=== PATIENT | female | born 1950 | race Caucasian/White ===

== ENCOUNTER 2020-06-19 14:34 | Outpatient (CLI) | payer OTHER, SELFPAY ==
[2020-06-19 15:20] LABS: Basophils Absolute Auto 0.1 K/mm3 (0.0-0.1); Basophils Percent Auto 1.1 % (0.2-1.2); Eosinophils Absolute Auto 0.4 K/mm3 (0-0.3); Eosinophils Percent Auto 5.4 % (0-4.4); Hematocrit 45.3 % (37.0-47.0); Hemoglobin 15.1 g/dL (12.0-15.0); Immature Granulocyte Absolute 0.02 K/mm3 (0.00-0.031); Immature Granulocyte Percent A 0.3 % (0-0.5); Lymphocytes Absolute Auto 1.83 K/mm3 (0.9-3.2); Mean Corpuscular HGB Conc 33.3 g/dl (32-36); Mean Corpuscular Hemoglobin 27.9 pg (26-34); Mean Corpuscular Volume 83.7 fl (80-100); Mean Platelet Volume 10.5 fl (7.4-10.4); Monocytes Absolute Auto 0.8 K/mm3 (0.1-0.6); Monocytes Percent Auto 10.3 % (2.6-8.5); Neutrophils Absolute Auto 4.8 K/mm3 (1.3-6.7); Neutrophils Percent Auto 59.9 % (45.5-73.1); Platelet Count Result 267 k/mm3 (150-375); Red Blood Count 5.41 M/mm3 (4.2-5.4); Red Cell Distribution Width 14.7 % (11.5-14.5)
[2020-06-19 15:33] LABS: Alanine Aminotransferase 30 U/L (4-35); Albumin Level 4.7 g/dL (3.5-5.1); Alkaline Phosphatase 123 U/L (38-126); Anion Gap 8 mmol/L (8-16); Aspartate Amino Transferase 32 U/L (14-36); Bilirubin,Total 0.5 mg/dL (0.2-1.3); Blood Urea Nitrogen 11 mg/dL (7-17); Calcium 9.5 mg/dL (8.4-10.2); Carbon Dioxide 27 mmol/L (22-30); Chloride 104 mmol/L (98-107); Cholesterol 159 mg/dL (0-200); Estimated Glomerular Filt Rate > 60; Glucose 102 mg/dL (65-105); HDL Direct 75 mg/dL; Potassium 4.1 mmol/L (3.4-5.0); Sodium 139 mmol/L (137-145); Triglycerides 52 mg/dL (<150)
[2020-06-19 15:41] LABS: Hemoglobin A1C 6.1 % (<5.7)
[2020-06-19 15:44] LABS: LDL Cholesterol Direct 69 mg/dL
[2020-06-19 15:57] LABS: Creatinine Urine 129.9 mg/dL
[2020-06-19 16:12] LABS: Vitamin D 25 Hydroxy 55.1 ng/mL
[2020-06-19 16:14] LABS: MALB Creatinine Ratio < 4.6 mg/g (0-30); Microalbumin Urine Random < 6.0 mg/L (0-16.7)
== END 2020-06-19 14:35 | disposition home or self-care (01) ==
PROVIDERS: PCP Internal Medicine; Visit Provider Internal Medicine
DX: R73.01 Impaired fasting glucose (principal); E78.5 Hyperlipidemia, unspecified; I10 Essential (primary) hypertension; E55.9 Vitamin D deficiency, unspecified
CPT/HCPCS: 36415; 80053; 80061; 82043; 82306; 83036; 84443; 85025

== ENCOUNTER 2020-08-21 08:18 | Outpatient (CLI) | payer OTHER, SELFPAY ==
--- NOTE | 2020-09-14 13:48 | WPDHOMESLEEP ---
Sleep Study - Home Unattended Date of Study: 08/21/20 Ordering Provider: Carlos little MD Interpreting Physician: Wendie Hernandez MD Home Sleep Study Type: Apnea Link Air Height: 1.52 m Weight: 81.647 kg Body Mass Index: 35.2 [place]: 4 Reason for Sleep Study non refreshing sleep, tired all day Sleep History hSea Hays is a 70 yo female with complaints of feeling tired all day and having morning fog. She has been on CPAP in the past. She frequently awakens from sleep feeling short of breath. She occasionally awakens at night with heartburn belching or coughing. She frequently snores. She is not sure of it is loud enough that others complain about it because she lives by herself. She does not gasp for breath at night and does not sweat excessively at night. She does not have palpitations or notices her heart pounding irregularly at night. She frequently falls asleep during the day, occasionally involuntarily but never while driving. She does not fall asleep during physical effort. She does not have loss of muscle tone was strong emotion. She occasionally has excessive daytime sleepiness which interferes with her daytime activities. She does not feel paralyzed on waking or falling asleep, rarely has vivid dreamlike scenes upon awakening or falling asleep. She has never for a to go to sleep. She does not have nightmares and does not remember her dreams. She rarely has racing thoughts, feelings of sadness or depression. She never has anxiety. She rarely has muscular tension. She does not notice pressure body jerking. She occasionally kicks at night, occasionally has crawling and aching feelings in her legs and occasionally has leg pain at night. She rarely has morning jaw pain. She occasionally grinds her teeth at night, occasionally is bothered by pain during the day, awakened by pain at night, feels stiff in the morning, has sore achy muscles and pain in the neck and spine joints. She has fatigue and memory problems. Normal bedtime is 12 midnight taking 5 minutes fall asleep typically waking once at most at night. During this time she goes to the bathroom. She wakes the morning at 7:00 a.m.. Weekend schedule is the same. She does not take naps. She is drowsy in the morning for 3 hours or longer. She has gained 10 lb in the last year. Habits: Quit tobacco 40 years ago. One caffeinated beverage a day. No alcohol or recreational drugs. [facility] Past Medical History Medical History (Updated 09/14/20 @ 13:54 by Wendie Hernandez MD) Essential hypertension Gastroesophageal reflux disease Hearing loss Hx of abnormal cervical Pap smear IFG (impaired fasting glucose) SALOME (obstructive sleep apnea) Stress incontinence in female Tinnitus of both ears Vitamin D deficiency, unspecified Family History Family History (Updated 01/05/18 @ 14:09 by DOCTOR UNKNOWN) Mother Hypertension Family history of obesity Family history of osteoporosis Family history of mental disorder Depression Family history of anemia Family history of hepatitis Family history of arthritis Sibling Hypertension Depression Patient's brother is in good health Family history of congestive heart failure Father Family history of diabetes mellitus in first degree relative Family history of heart disease in male family member before age 55 Diabetes mellitus Family history of cardiovascular disease Family history of congestive heart failure Social History Social History Smoking status: Never smoker Smoking end date: 11/09/69 Alcohol intake: never Medications Home Medications Medication Instructions Recorded Confirmed Type amlodipine 10 mg tablet 10 mg PO DAILY #90 tablet 06/19/20 06/19/20 Rx rosuvastatin 5 mg tablet 5 mg PO DAILY #90 tablet 06/19/20 06/19/20 Rx lisinopril 40 mg tablet 40 mg PO DAILY #90 tablet 07/05/20 Rx fluticasone propionate 50 See Rx Instructions .ROUTE 09/03/20 Rx mcg/actua
[2020-09-14 14:06] VITALS: BMI 35.2
== END 2020-08-21 08:19 | disposition home or self-care (01) ==
LOC: ANHCSM 08:19
PROVIDERS: PCP Internal Medicine; Visit Provider Internal Medicine
DX: G47.33 Obstructive sleep apnea (adult) (pediatric) (principal); I10 Essential (primary) hypertension; E78.5 Hyperlipidemia, unspecified; R73.01 Impaired fasting glucose; K21.9 Gastro-esophageal reflux disease without esophagitis; E55.9 Vitamin D deficiency, unspecified; H93.13 Tinnitus, bilateral
CPT/HCPCS: 95806

== ENCOUNTER 2020-11-24 01:20 | Outpatient (CLI) | payer OTHER, SELFPAY ==
[2020-11-24 18:46] LABS: SARS-CoV-2 RNA PCR Negative
== END 2020-11-24 01:21 | disposition home or self-care (01) ==
LOC: ANHCOVIDDT 01:21
PROVIDERS: PCP Internal Medicine; Visit Provider Internal Medicine Critical Care Medicine
DX: Z01.812 Encounter for preprocedural laboratory examination (principal); Z20.822 Contact with and (suspected) exposure to COVID-19
CPT/HCPCS: C9803; U0003; U0005

== ENCOUNTER 2020-11-27 07:25 | Outpatient (CLI) | payer OTHER, SELFPAY ==
--- NOTE | 2020-12-29 18:52 | WPDSLEEPSTUD ---
Sleep Study Date of Study: 11/27/20 Ordering Provider: Carlos Spangler MD Interpreting Physician: Wendie Hernandez MD Sleep Study Type: CPAP Titration Height: 1.5 m Weight: 81.647 kg Body Mass Index: 36.3 [place]: 5 Reason for Sleep Study Aug 21, 2020 home sleep test with moderate SALOME, AHI 19, obstructive events 61% with a substantial amount 39% central apneas; presents for a CPAP titration. Sleep History Shea Hays is a 70 yo female with complaints of feeling tired all day and having morning fog. She has been on CPAP in the past. Her home sleep test on August 21, 2020 showed moderate obstructive sleep apnea with a significant number of central apneas; she presents at this time for CPAP titration. She frequently awakens from sleep feeling short of breath. She occasionally awakens at night with heartburn belching or coughing. She frequently snores. She is not sure of it is loud enough that others complain about it because she lives by herself. She does not gasp for breath at night and does not sweat excessively at night. She does not have palpitations or notices her heart pounding irregularly at night. She frequently falls asleep during the day, occasionally involuntarily but never while driving. She does not fall asleep during physical effort. She does not have loss of muscle tone was strong emotion. She occasionally has excessive daytime sleepiness which interferes with her daytime activities. She does not feel paralyzed on waking or falling asleep, rarely has vivid dreamlike scenes upon awakening or falling asleep. She has never for a to go to sleep. She does not have nightmares and does not remember her dreams. She rarely has racing thoughts, feelings of sadness or depression. She never has anxiety. She rarely has muscular tension. She does not notice pressure body jerking. She occasionally kicks at night, occasionally has crawling and aching feelings in her legs and occasionally has leg pain at night. She rarely has morning jaw pain. She occasionally grinds her teeth at night, occasionally is bothered by pain during the day, awakened by pain at night, feels stiff in the morning, has sore achy muscles and pain in the neck and spine joints. She has fatigue and memory problems. Normal bedtime is 12 midnight taking 5 minutes fall asleep, typically waking once at most at night. During this time, she goes to the bathroom. She wakes the morning at 7:00 a.m.. Weekend schedule is the same. She does not take naps. She is drowsy in the morning for 3 hours or longer. She has gained 10 lb in the last year. Habits: Quit tobacco 40 years ago. One caffeinated beverage a day. No alcohol or recreational drugs. [facility] Past Medical History Medical History Essential hypertension Gastroesophageal reflux disease Hearing loss Hx of abnormal cervical Pap smear IFG (impaired fasting glucose) SALOME (obstructive sleep apnea) Stress incontinence in female Tinnitus of both ears Vitamin D deficiency, unspecified Family History Family History Mother Hypertension Family history of obesity Family history of osteoporosis Family history of mental disorder Depression Family history of anemia Family history of hepatitis Family history of arthritis Sibling Hypertension Depression Patient's brother is in good health Family history of congestive heart failure Father Family history of diabetes mellitus in first degree relative Family history of heart disease in male family member before age 55 Diabetes mellitus Family history of cardiovascular disease Family history of congestive heart failure Social History Social History (Updated 12/29/20 @ 19:05 by Wendie Hernandez MD) Smoking status: Former smoker Smoking end date: 11/09/69 Alcohol intake: never Medications Home Medications
[2020-12-29 19:02] VITALS: BMI 36.3
== END 2020-11-27 07:26 | disposition home or self-care (01) ==
LOC: ANHCSM 07:25
PROVIDERS: PCP Internal Medicine; Visit Provider Internal Medicine
DX: G47.33 Obstructive sleep apnea (adult) (pediatric) (principal); E66.9 Obesity, unspecified; Z68.36 Body mass index [BMI] 36.0-36.9, adult
CPT/HCPCS: 95811

== ENCOUNTER 2021-01-17 13:12 | Outpatient (CLI) | payer OTHER, SELFPAY ==
--- NOTE | ~2021-01-17 | MMUS_ITS ---
EXAMINATION: MM diagnostic asya RT w barrie, US breast RT complete HISTORY: Probable benign right breast masses reported on 05/19/2019 diagnostic right digital mammogram and limited right breast ultrasound examination TECHNIQUE: ML, MLO and craniocaudal 3-D tomosynthesis images of the right breast were performed and s ynthetic 2-D images were generated. CAD analysis was submitted and interpreted. High resolution compl ete right breast ultrasound was performed. COMPARISON: 04/19/2019 bilateral digital screening mammogram 05/19/2019 diagnostic right digital mammogram and limited right breast ultrasound examination BREAST PARENCHYMAL COMPOSITION: There are scattered areas of fibroglandular density. FINDINGS: MAMMOGRAPHIC FINDINGS: There are multiple scattered small scattered nodular densities. There are occasional benign calcifica tions. No suspicious mass or architectural distortion, malignant calcification, skin thickening or retractio n is evident. ULTRASOUND: At 6:00 2 cm from the nipple there is an irregular anti-parallel hypoechoic mass with some internal v ascularity, measuring up to approximately 11 mm depth, 10 mm width, more bulky posteriorly with, with an anteriorly directed stem-like process. This is a suspicious finding. Ultrasound-guided biopsy is recommended. 7:00 4 cm from nipple: Parallel circumscribed hypoechoic 3.1 x 2.6 mm lesion without internal vascula rity or posterior shadowing 6:00 3 cm from nipple:, Comma-shaped circumscribed bilobed sonolucency with internal calcification, m easuring up to 9.4 mm maximal dimension; there is no internal vascularity or posterior shadowing. IMPRESSION: 1. Suspicious antiparallel irregular up to 11 mm mass at 6:00 2 cm from nipple 2. Ultrasound-guided biopsy of right breast 6:00 lesion is recommended BI-RADS category 4, suspicious findings. Dr. Mosher telephoned the report and ultrasound guided biopsy recommendation on 01/17/20[address] Spangler's Delivery Analyst Reviewed, dictated and finalized at location A. PRODUCT TRAINER IMPRESSION: 1. Suspicious antiparallel irregular up to 11 mm mass at 6:00 2 cm from nipple 2. Ultrasound-guided biopsy of right breast 6:00 lesion is recommended BI-RADS category [address] Mosher telephoned the report and ultrasound guided biopsy recommendation on at [address] Spangler's Delivery Analyst
== END 2021-01-17 13:13 | disposition home or self-care (01) ==
PROVIDERS: PCP Internal Medicine; Visit Provider Internal Medicine
DX: R92.8 Other abnormal and inconclusive findings on diagnostic imaging of breast (principal)
CPT/HCPCS: 76641; 77061; 77065; G0279

== ENCOUNTER 2021-02-05 09:47 | Outpatient (CLI) | payer OTHER, SELFPAY ==
--- NOTE | ~2021-02-05 | MMUS_ITS ---
EXAMINATION: US breast biopsy RT w image, MM post biopsy invasive RT DATE: 02/05/2021 11:15 (accession [id number]), 02/05/2021 11:27 (accession [id number]) INDICATION: Indeterminate mass at the 6:00 location of the right breast. Ultrasound-guided core biops y is requested to evaluate for malignancy. TECHNIQUE AND FINDINGS: The risks and potential benefits of the procedure were discussed with the patient including bleeding and infection. A time out was performed. The skin of the right breast was prepared and draped in usua l sterile fashion. 1% lidocaine was used for superficial anesthesia. 1% lidocaine with epinephrine wa s used for deep anesthesia. A vacuum-assisted biopsy gun needle was advanced through to the outer edge of the region of interest from a medial approach utilizing sonographic guidance. A total of three tissue core samples were obta ined through the lesion. A tissue marker clip was then placed at the biopsy site. Hemostasis was achi eved. A sterile bandage was applied. The patient tolerated procedure well and there was no evidence of immediate complication. The patient was given verbal instructions to return to the Emergency Department in the event of severe breast pa in or rapid breast enlargement. A two view right breast mammogram was obtained to document tissue mar ker clip placement. IMPRESSION: 1. Successful ultrasound-guided vacuum-assisted biopsy of right breast mass with tissue marker placem ent. Reviewed, dictated and finalized at location A. IMPRESSION: 1. Successful ultrasound-guided vacuum-assisted biopsy of right breast mass wit h tissue marker placement.
== END 2021-02-05 09:48 | disposition home or self-care (01) ==
PROVIDERS: PCP Internal Medicine; Visit Provider Internal Medicine
DX: N63.13 Unspecified lump in the right breast, lower outer quadrant (principal)
CPT/HCPCS: 19083; 88305; 88342

== ENCOUNTER 2022-01-29 14:32 | Outpatient (CLI) | payer OTHER, SELFPAY ==
--- NOTE | ~2022-01-29 | DEXA_ITS ---
Bone Density Report Name: ZAHIRA SILVESTRE Age: 71 Sex: Female Ethnicity: White Date of : 1950 Indication: postmenopausal; height loss; prior fracture; Referring Provider: ALESSIA NGUYEN Study: Bone densitometry was performed. Exam Date: January 29, 2022 Accession number: [id number] Bone Density: Region BMD T-score Z-score Classification AP Spine (L1, L4) 1.089 0.5 2.7 Normal Femoral Neck (Left) 0.639 -1.9 0.0 Osteopenia Total Hip (Left) 0.883 -0.5 1.1 Normal Total Hip Bilateral Avg 0.891 -0.5 1.2 Normal Femoral Neck (Right) 0.766 -0.7 1.1 Normal Total Hip (Right) 0.898 -0.4 1.2 Normal World Health Organization criteria for BMD impression classify patients as: Normal (T-score at or above -1.0), Osteopenia (T-score between -1.0 and -2.5), or Osteoporosis (T-score at or below -2.5). 10-year Fracture Risk(1): Major Osteoporotic Fracture 16% Hip Fracture 2.8% Reported Risk Factors: [place] (), Neck BMD=0.639, BMI=36.4, previous fracture (1) FRAX(R) Version 3.08. Fracture probability calculated for an untreated patient. Fracture probability may be lower if the patient has received treatment. Previous Exams: Region Exam Age BMD T-score BMD Change BMD Change Date g/cm2 vs Baseline vs Previous AP Spine(L1, L4) 01/29/2022 71 1.089 0.5 0.102(10.3%)* 0.053(5.1%)* 04/19/2019 68 1.036 0.0 0.049(5.0%)* 0.049(5.0%)* 01/17/2016 65 0.987 -0.5 Total Hip(Left) 01/29/2022 71 0.883 -0.5 -0.095(-9.7%)* -0.059(-6.3%)* 04/19/2019 68 0.943 0.0 -0.036(-3.7%)* -0.036(-3.7%)* 01/17/2016 65 0.979 0.3 Total Hip(Right) 01/29/2022 71 0.898 -0.4 -0.086(-8.7%)* -0.006(-0.7%) 04/19/2019 68 0.904 -0.3 -0.079(-8.1%)* -0.079(-8.1%)* 01/17/2016 65 0.984 0.3 *Denotes significance at 95% confidence level, LSC for AP Spine = 0.022 g/cm2, LSC for Total Hip = 0.027 g/cm2 Clinical Information Provided by Patient: Has had a low trauma fracture Has used the following medications: Vitamin D, Calcium Patient maximum height was 61.5 Menopause Age: 55 No regular weight bearing exercise Drinks caffeinated beverages Onset of menses at age 12 Number of children 1 Impression: The patient has low bone mass, based on the Left Femoral Neck T-score. The patient has an estimated ten-year risk of hip fracture of 2.8% and an estimated ten-year risk of major fracture of 16%, based on the WHO FRAX algorithm. The patient has
== END 2022-01-29 14:33 | disposition home or self-care (01) ==
LOC: ANHIMG 14:38
PROVIDERS: PCP Internal Medicine; Visit Provider Internal Medicine
DX: M85.852 Other specified disorders of bone density and structure, left thigh (principal)
CPT/HCPCS: 77080

== ENCOUNTER 2022-05-30 06:29 | Outpatient (CLI) | payer OTHER, SELFPAY ==
--- NOTE | ~2022-05-30 | CT_ITS ---
EXAMINATION: CT soft tissue neck w con DATE: 05/30/2022 07:06 INDICATION: Left neck mass. 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 TECHNIQUE: Computed tomography (CT) of the neck was performed with 75 mL Omnipaque 300 intravenous co ntrast. Automated exposure control and iterative reconstruction technique were employed. The dose-daily gth product was 412.47 mGy-cm. COMPARISON: None FINDINGS: There are nodules in the thyroid measuring up to 8 mm, likely not clinically significant. T here are no pathologically enlarged lymph nodes. There is 0% stenosis of the proximal internal caroti d arteries relative to normal distal artery lumen diameters. There is severe cervical spondylosis. IMPRESSION: 1. No cervical lymphadenopathy. Reviewed, dictated and finalized at location A.
[2022-05-30 07:02] LABS: Estimated Glomerular Filt Rate > 60
[2022-05-30 08:08] LABS: Basophils Absolute Auto 0.1 K/mm3 (0.0-0.1); Eosinophils Absolute Auto 0.4 K/mm3 (0-0.3); Eosinophils Percent Auto 5.2 % (0-4.4); Hematocrit 41.9 % (37.0-47.0); Hemoglobin 14.2 g/dL (12.0-15.0); Immature Granulocyte Absolute 0.01 K/mm3 (0.00-0.031); Immature Granulocyte Percent A 0.1 % (0-0.5); Lymphocytes Absolute Auto 1.74 K/mm3 (0.9-3.2); Lymphocytes Percent Auto 22.8 % (18.3-44.2); Mean Corpuscular HGB Conc 33.9 g/dl (32-36); Mean Corpuscular Hemoglobin 28.5 pg (26-34); Mean Platelet Volume 9.9 fl (7.4-10.4); Monocytes Absolute Auto 0.8 K/mm3 (0.1-0.6); Monocytes Percent Auto 10.2 % (2.6-8.5); Neutrophils Absolute Auto 4.6 K/mm3 (1.3-6.7); Neutrophils Percent Auto 60.7 % (45.5-73.1); Platelet Count Result 256 k/mm3 (150-375); Red Blood Count 4.99 M/mm3 (4.2-5.4); Red Cell Distribution Width 14.3 % (11.5-14.5); White Blood Count 7.6 K/mm3 (4.5-10.0)
[2022-05-30 08:19] LABS: Alanine Aminotransferase 22 U/L (6-35); Albumin Level 4.6 g/dL (3.5-5.1); Alkaline Phosphatase 130 U/L (38-126); Anion Gap 6 mmol/L (8-16); Aspartate Amino Transferase 26 U/L (14-36); Bilirubin,Total 0.5 mg/dL (0.2-1.3); Blood Urea Nitrogen 16 mg/dL (7-17); Carbon Dioxide 26 mmol/L (22-30); Chloride 107 mmol/L (98-107); Estimated Glomerular Filt Rate > 60; Glucose 131 mg/dL (65-110); Potassium 4.3 mmol/L (3.4-5.0); Sodium 139 mmol/L (137-145)
[2022-06-03 20:04] LABS: CA 15-3 7 U/mL (<32)
== END 2022-05-30 06:30 | disposition home or self-care (01) ==
PROVIDERS: PCP Internal Medicine; Visit Provider Internal Medicine Hematology & Oncology
DX: C50.912 Malignant neoplasm of unspecified site of left female breast (principal); C50.412 Malignant neoplasm of upper-outer quadrant of left female breast; Z17.0 Estrogen receptor positive status [ER+]; M47.812 Spondylosis without myelopathy or radiculopathy, cervical region
CPT/HCPCS: 70491; 80053; 85025; 86300; Q9967

== ENCOUNTER 2022-07-10 13:24 | Outpatient (CLI) | payer OTHER, SELFPAY ==
--- NOTE | 2022-07-10 | ECHO_ITS ---
Patient Info Name: Shea Hays Age: 72 years : 1950 Gender: Female Ht: 59 in Wt: 180 lbs BSA: 1.89 m2 HR: 71 bpm BP: 124 / 90 mmHg Heart Rhythm: Sinus Rhythm Exam Date: 07/10/2022 2:24 PM Exam Location: [facility] Patient Status: Outpatient Admit Date: 07/10/2022 Staff Ordering Physician: Ranjan Salinas MD Legal Internship: Amanda Avalos RDCS Attending Provider: Ranjan Salinas MD Referring Physician: Brad BOSS; Exam Type: CA echo doppler color flow Study Info Indications C50.412 - Malignant neoplasm of upper-outer quadrant of left female breast Complete two-dimensional, color flow and Doppler transthoracic echocardiogram is performed. Summary 1. Complete two-dimensional, color flow and Doppler transthoracic echocardiogram is performed. 2. Normal left ventricular size with mild concentric hypertrophy. Good systolic function of all segments with no segmental wall motion abnormalities. Ejection fraction is 61%. Global longitudinal strain is mildly diminished at -15% consistent with a degree of systolic dysfunction. Grade 1 diastolic dysfunction is present. 3. Left atrial chamber dimension is mildly enlarged. 4. No significant valve disease. 5. Normal sinus rhythm. 6. Right ventricular systolic pressure cannot be estimated on this study. Left Ventricle Left ventricular chamber dimension is normal. Left ventricular systolic function is normal, estimated at Empty. There is mildly increased left ventricular wall thickness. Left ventricular septal wall motion is normal. The left ventricular diastolic function is grade I diastolic dysfunction. Global longitudinal strain is mildly elevated at -15 %. Right Ventricle Right ventricular chamber dimension is normal. Right ventricular systolic function is normal. Left Atria Left atrial chamber dimension is mildly enlarged. Right Atria Right atrial chamber dimension is normal. Aortic Valve The aortic valve is trileaflet. There is no aortic valve sclerosis. There is no aortic valve stenosis. There is trace aortic valve regurgitation. Pulmonic Valve The pulmonic valve is normal. There is no pulmonic valve stenosis. There is no pulmonic regurgitation. Mitral Valve The mitral valve has normal leaflets. There is no mitral valve stenosis. There is no mitral valve regurgitation. Tricuspid Valve The tricuspid valve leaflets are normal. There is no significant tricuspid valve stenosis. There is trace tricuspid valve regurgitation. No pulmonary hypertension, estimated pulmonary arterial systolic pressure is Empty. Pericardium/Pleural The pericardium appears normal. There is no pericardial effusion. Inferior Vena Cava Not well visualized inferior vena cava with >50% collapse upon inspiration consistent with Empty right atrial pressure, Empty. Aorta The aortic root size at the sinus of Valsalva is normal. The prox ascending aorta size is normal. Left Ventricular Outflow Tract Name Value Normal LVOT 2D LVOT Diameter 2.0 cm LVOT Doppler LVOT Peak Gradient 3 mmHg LVOT Mean Gradient
== END 2022-07-10 13:25 | disposition home or self-care (01) ==
LOC: ANHCARD 13:30
PROVIDERS: PCP Internal Medicine; Visit Provider Internal Medicine Hematology & Oncology
DX: C50.412 Malignant neoplasm of upper-outer quadrant of left female breast (principal); Z17.0 Estrogen receptor positive status [ER+]; I74.4 Embolism and thrombosis of arteries of extremities, unspecified
CPT/HCPCS: 93306

== ENCOUNTER 2022-08-04 13:28 | Outpatient (CLI) | payer OTHER, SELFPAY ==
[2022-08-04 14:01] LABS: Basophils Absolute Auto 0.1 K/mm3 (0.0-0.1); Basophils Percent Auto 1.1 % (0.2-1.2); Eosinophils Absolute Auto 0.5 K/mm3 (0-0.3); Eosinophils Percent Auto 6.2 % (0-4.4); Hematocrit 43.4 % (37.0-47.0); Hemoglobin 14.3 g/dL (12.0-15.0); Immature Granulocyte Absolute 0.02 K/mm3 (0.00-0.031); Immature Granulocyte Percent A 0.3 % (0-0.5); Lymphocytes Absolute Auto 1.88 K/mm3 (0.9-3.2); Lymphocytes Percent Auto 25.2 % (18.3-44.2); Mean Corpuscular HGB Conc 32.9 g/dl (32-36); Mean Corpuscular Hemoglobin 27.9 pg (26-34); Mean Corpuscular Volume 84.8 fl (80-100); Mean Platelet Volume 10.1 fl (7.4-10.4); Monocytes Absolute Auto 0.8 K/mm3 (0.1-0.6); Monocytes Percent Auto 11.3 % (2.6-8.5); Neutrophils Absolute Auto 4.2 K/mm3 (1.3-6.7); Neutrophils Percent Auto 55.9 % (45.5-73.1); Platelet Count Result 254 k/mm3 (150-375); Red Blood Count 5.12 M/mm3 (4.2-5.4); Red Cell Distribution Width 14.3 % (11.5-14.5); White Blood Count 7.5 K/mm3 (4.5-10.0)
[2022-08-04 14:11] LABS: Anion Gap 10 mmol/L (8-16); Blood Urea Nitrogen 12 mg/dL (7-17); Calcium 9.7 mg/dL (8.4-10.2); Carbon Dioxide 23 mmol/L (22-30); Chloride 105 mmol/L (98-107); Estimated Glomerular Filt Rate > 60; Glucose 108 mg/dL (65-110); Sodium 138 mmol/L (137-145)
[2022-08-04 14:14] LABS: Prothrombin Time 12.8 Seconds (11.1-14.7)
== END 2022-08-04 13:29 | disposition home or self-care (01) ==
LOC: ANHSURGERY 13:40
PROVIDERS: Anesthesiology; PCP Internal Medicine; Visit Provider Surgery
DX: C50.912 Malignant neoplasm of unspecified site of left female breast (principal); E11.9 Type 2 diabetes mellitus without complications; Z01.818 Encounter for other preprocedural examination
CPT/HCPCS: 36415; 80048; 85025; 85610; 85730

== ENCOUNTER 2022-08-07 00:35 | Day surgery (SDC) | payer OTHER, SELFPAY ==
[2022-06-17 14:36] VITALS: BMI 36.5
--- NOTE | 2022-06-17 14:43 | PC.NURSE ---
Report to the Outpatient Waiting Room, entrance under the green pavilion located off [facility], at time _1000_ on date _06/18/22_. OR Time: __1200. - You and your visitor will be asked a series of questions to screen for COVID 19 for your protection. - Only one visitor is allowed at this time. - The patient visitor is requested to leave or wait in car when not with patient. - A mask is required within the hospital. Patients may have clear liquids (water, carbonated beverages, clear teas, apple juice) until 3 hours prior to surgery with a maximum of 20 ounces. - No food from midnight until time of surgery - Infants may have breast milk until 4 hours before surgery, formula 6 hours prior to surgery. - Children will be allowed to drink immediately following surgery. If applicable, please bring a bottle or sippy cup to assist with drinking. Juice, water, soda, and popsicles are readily available. For infants on formula, please bring formula the day of surgery. Pacifiers are allowed. Take the following medications with a SIP of water the morning of surgery: NONE Medications to discontinue per physician NONE Date to take last dose Please no make-up, nail frisian, hairspray, perfume, deodorant, or body powder the day of surgery. No jewelry (including any body piercings) or valuables the day of surgery, leave them at home. Please take a shower or bath the night before, or the morning of, surgery with an antibacterial soap. Wear comfortable, loose fitting clothing. Children are encouraged to wear pajamas. - Jewelry must be removed prior to entering the operating room. Rings and piercings that are not removed may be cut off. - The hospital will not accept responsibility for valuables. - Please leave all valuables, including medications, at home the day of surgery. If you are going home after surgery, a licensed corporate driver must drive you home. - NO public transportation without another adult. - We recommend that an adult stay with you for 24 hours following discharge. - We also recommend that you do not drive, make important decision, drink alcoholic beverages, or take any drugs that were not prescribed by your health care provider for at least 24 hours after your discharge time. For Pediatric surgeries, we recommend two adults accompany the child home (only one inside the building at this time). Follow any additional instructions given to you from your surgeon. If you or anyone in your household have experienced Covid symptoms in the past week, please notify your surgeon or the nurse liaison at the phone number below for possible testing. Telephone instructions given to __PATIENT and asked if any additional questions and then verbalized understanding. Patient advised to call surgeon office or pre surgery nurse liaison [phone] if any additional questions.
[2022-08-04 11:10] VITALS: BMI 36.5
--- NOTE | 2022-08-04 11:20 | PC.NURSE ---
Report to the Outpatient Waiting Room, entrance under the green pavilion located off [facility], at time 10:00 on date 08/07/22. OR Time: 12:00. Time changes happen often and if your time is changed the preop area will call you the afternoon before. - You and your visitor will be asked to self-screen and do not enter if you have any COVID symptoms. - Only one visitor and NO children visitors are allowed at this time. - The patient visitor is requested to leave or wait in car when not with patient due to restrictions. - A mask is required within the hospital. Patients may have clear liquids (water, carbonated beverages, clear teas, apple juice) until 3 hours prior to surgery (9:00) with a maximum of 20 ounces. - No food from midnight until time of surgery Take the following medications with a SIP of water the morning of surgery: NONE Medications to discontinue per physician: N/A Date to take last dose: N/A Please no make-up, nail turkish, hairspray, perfume, deodorant, or body powder the day of surgery. No jewelry (including any body piercings) or valuables the day of surgery, leave them at home. Please take a shower or bath the night before, or the morning of, surgery with an antibacterial soap. Wear comfortable, loose fitting clothing. - Jewelry must be removed prior to entering the operating room. Rings and piercings that are not removed may be cut off. - The hospital will not accept responsibility for valuables. - Please leave all valuables, including medications, at home the day of surgery. If you are going home after surgery, a licensed local intermodal truck driver must drive you home. - NO public transportation without another adult. - We recommend that an adult stay with you for 24 hours following discharge. - We also recommend that you do not drive, make important decision, drink alcoholic beverages, or take any drugs that were not prescribed by your health care provider for at least 24 hours after your discharge time. Follow any additional instructions given to you from your surgeon. If you or anyone in your household have experienced Covid symptoms in the past week, please notify your surgeon or the nurse liaison at the phone number below for possible testing. Telephone instructions given to PT - ZAHIRA SILVESTRE and asked if any additional questions and then verbalized understanding. Patient advised to call surgeon office or pre surgery nurse liaison [phone] if any additional questions.
--- NOTE | 2022-08-06 13:21 | WPDANESEPPF ---
Anes - Initial Pre Proc Eval Procedure: Operation Date: 08/07/22 12:00 Proposed Procedures p Insertion Nichelle Cath - Addison Ortiz MD Date/Time: 08/06/22 13:21 Surgeon: Addison Ortiz MD Pre Op Diagnosis: Malignant Neoplasm of Breast Patient Data Age: 72 Gender: F Height: 1.5 m Weight: 82 kg Allergies Allergy/AdvReac Type Severity Reaction Status Date / Time Sulfa (Sulfonamide Allergy Mild Skin Verified 08/07/22 10:18 Antibiotics) irritation onion AdvReac Intermediate Diarrhea Verified 08/07/22 10:18 Home Medications Medication Instructions Recorded Confirmed Type amlodipine 10 mg tablet 10 mg PO DAILY #90 tabs 06/13/22 08/04/22 Rx metformin 500 mg tablet 500 mg PO DAILY #90 tabs 06/13/22 08/04/22 Rx rosuvastatin 5 mg tablet 5 mg PO DAILY #90 tabs 06/13/22 08/04/22 Rx fluticasone propionate 50 2 spray intranasal DAILY 06/17/22 08/04/22 History mcg/actuation nasal spray,suspension lisinopril 40 mg tablet 40 mg PO DAILY #90 tabs 06/17/22 08/04/22 Rx Patient hx anesthesia problems: none Family hx anesthesia problems: none Results Review: All pre-operative results and documents have been reviewed as part of the pre-operative evaluation. [facility] Past Medical History Medical History (Updated 08/06/22 @ 13:21 by Alec Balderas MD) Abnormal breast biopsy Diabetes Dyslipidemia Essential hypertension Gastroesophageal reflux disease Hearing loss Hx of abnormal cervical Pap smear IFG (impaired fasting glucose) Malignant neoplasm of unspecified site of left female breast Obesity (BMI 30-39.9) SALOME (obstructive sleep apnea) Osteopenia Sleep apnea Stress incontinence in female Tinnitus of both ears Vitamin D deficiency, unspecified Family History Family History Mother Hypertension Family history of obesity Family history of osteoporosis Family history of mental disorder Depression Family history of anemia Family history of hepatitis Family history of arthritis Sibling Hypertension Depression Patient's brother is in good health Family history of congestive heart failure Father Family history of diabetes mellitus in first degree relative Family history of heart disease in male family member before age 55 Diabetes mellitus Family history of cardiovascular disease Family history of congestive heart failure Social History Social History Smoking packs per day: 0.5 Smoking cigarettes per day: 10.0 Years smoked: 10 Smoking pack-years: 5.00 Smoking status: Former smoker Tobacco type: cigarettes Second hand tobacco smoke exposure: No Smoking end date: 11/09/69 Additional smoking assessment comments: SOCIAL SMOKER TEEN, EARLY 20'S Alcohol intake: never Substance use: never Substance use type: does not use Living arrangements: alone Spiritual care concerns: No Anes - Eval Final PreProcedure Day of Procedure 08/06/22 13:21 Patient weight: obese Heart: regular rate and rhythm Lungs: clear to auscultation and normal air movement Airway: Mallampati scale class II Neurological: alert and oriented Last oral intake: >/= 8 hours ASA classification: III Emergent: no Anesthetic plan: proceed Anesthesia type and monitoring: general GIVS and LMA Results Review: All pre-operative results and documents have been reviewed as part of the pre-operative evaluation. Informed Consent: The patient's anesthetic plan and its attendant risks and benefits were discussed with the patient/family/POA. Questions were solicited and answers provided to the satisfaction of the patient/family/POA.
[2022-08-07] VITALS (9 sets, daily range): BP systolic 109–146; BP diastolic 67–86; PULSE 59–76; RESP 12–18; TEMP 36.3–36.7; O2SAT 93–99
--- NOTE | ~2022-08-07 | XR_ITS ---
EXAMINATION: XR fl guide central line place INDICATION: Port-A-Cath insertion TECHNIQUE: Two intraoperative fluoroscopic images are submitted for review. Total fluoroscopic time w as 4 minutes and 21 seconds COMPARISON: None available FINDINGS: One fluoroscopic image demonstrates a right subclavian guidewire. The second demonstrates a right subclavian Port-A-Cath which appears to be looped in the subclavian vein. Please refer to proc edure note for full details. IMPRESSION: 1. Please refer to procedure note for full details. Reviewed, dictated and finalized at location A.
--- NOTE | ~2022-08-07 | XR_ITS ---
EXAMINATION: XR chest port-a-cath/central INDICATION: Port-A-Cath insertion TECHNIQUE: Portable AP chest at 1302 hours COMPARISON: 01/17/2016 FINDINGS: A right subclavian Port-A-Cath ends with its tip in the distal superior vena cava. There is mild atelectasis of the lung bases. No pleural effusion or pneumothorax. The cardiomediastinal silho uette is normal for technique. IMPRESSION: 1. Right subclavian Port-A-Cath ending with its tip in the distal superior vena cava. 2. Atelectasis of the lung bases. Reviewed, dictated and finalized at location A.
[2022-08-07] MEDS: LACTATED RINGERS 1,000 ML 30 ML IV CONT ×2 (10:20→12:52)
[2022-08-07] MEDS: KETOROLAC 15 MG/ML VIAL (*BKC) IV PUSH (10:36)
[2022-08-07 10:47] LABS: Glucose Point of Care 124 mg/dl (65-105)
--- NOTE | 2022-08-07 11:39 | WPDHPUPDATE1 ---
History and Physical Update Update Date/Time: 08/07/22 11:39 History and Physical has been reviewed, including an updated exam of the patient. There are NO changes in the patient's condition. Risks, benefits, and alternatives have been discussed and questions answered. Patient agrees to proceed with procedure.
--- NOTE | 2022-08-07 11:39 | PM.SD2 ---
Same Day Admit/Disch: HPI History of Present Illness Chief complaint: Malignant Neoplasm of Breast Narrative: Shea Hays is a 72 year old female with left breast cancer. She will be having chemotherapy and is taken to surgery today for placement of a portacath for that purpose. [facility] Past Medical History Medical History (Updated 08/07/22 @ 13:07 by Addison Ortiz MD) Abnormal breast biopsy Diabetes Dyslipidemia Essential hypertension Gastroesophageal reflux disease Hearing loss Hx of abnormal cervical Pap smear IFG (impaired fasting glucose) Malignant neoplasm of unspecified site of left female breast Obesity (BMI 30-39.9) SALOME (obstructive sleep apnea) Osteopenia Sleep apnea Stress incontinence in female Tinnitus of both ears Vitamin D deficiency, unspecified Family History Family History Mother Hypertension Family history of obesity Family history of osteoporosis Family history of mental disorder Depression Family history of anemia Family history of hepatitis Family history of arthritis Sibling Hypertension Depression Patient's brother is in good health Family history of congestive heart failure Father Family history of diabetes mellitus in first degree relative Family history of heart disease in male family member before age 55 Diabetes mellitus Family history of cardiovascular disease Family history of congestive heart failure Social History Social History Smoking packs per day: 0.5 Smoking cigarettes per day: 10.0 Years smoked: 10 Smoking pack-years: 5.00 Smoking status: Former smoker Tobacco type: cigarettes Second hand tobacco smoke exposure: No Smoking end date: 11/09/69 Additional smoking assessment comments: SOCIAL SMOKER TEEN, EARLY 20'S Alcohol intake: never Substance use: never Substance use type: does not use Living arrangements: alone Spiritual care concerns: No Same Day Admit/Disch: Med Pre-admit Medications Home Medications Medication Instructions Recorded Confirmed Type amlodipine 10 mg tablet 10 mg PO DAILY #90 tabs 06/13/22 08/04/22 Rx metformin 500 mg tablet 500 mg PO DAILY #90 tabs 06/13/22 08/04/22 Rx rosuvastatin 5 mg tablet 5 mg PO DAILY #90 tabs 06/13/22 08/04/22 Rx fluticasone propionate 50 2 spray intranasal DAILY 06/17/22 08/04/22 History mcg/actuation nasal spray,suspension lisinopril 40 mg tablet 40 mg PO DAILY #90 tabs 06/17/22 08/04/22 Rx hydrocodone 5 mg-acetaminophen 325 1 - 2 tablet PO Q6H PRN pain #7 08/07/22 Rx mg tablet tabs ibuprofen 600 mg tablet 600 mg PO Q6H PRN pain #14 tabs 08/07/22 Rx Exam Const: General: comfortable, no acute distress, alert and awake HENMT: Head: normocephalic and atraumatic Mouth: Yes Normal oral and palatal mucosa present Eyes: Conjunctivae: conjunctivae normal Pupils: Equal, round and reactive pupils present EOM: EOMs intact bilaterally Neck: Neck: normal visual inspection, no lymphadenopathy and nontender Chest: Chest palpation & inspection: normal inspection of the chest, normal palpation of entire chest wall, no tenderness, No Pacemaker present and No rash Resp: Effort & Inspection: normal respiratory effort Auscultation: clear to auscultation bilaterally Cardio: Rate: regular rate Rhythm: regular rhythm Heart sounds: no gallops, no murmurs and no rubs GI: Inspection: non-distended GI Palp: Yes Soft to palpation, No Tenderness to palpation present (GI), No Hepatomegaly present and No Splenomegaly present Skin: Lesions: no lesions Rashes: no rashes Neuro: General: no focal motor deficits and CN's II-XI intact bilaterally Cranial nerves: Yes Equal, round and reactive pupils present, Yes Bilaterally intact EOM present, Yes facial symmetry and Yes Midline tongue present Speech: normal speech Motor exam (neuro): 5/5 motor stre
[2022-08-07] MEDS: ceFAZolin 2 GM/D5W 50 ML 2 GM/50 ML BAG IVPB (11:44)
[2022-08-07] MEDS: BUPIVACAINE/EPINEPHRINE 0.25% 50 ML VIAL 20 ML INFILTRATE (12:05)
[2022-08-07] MEDS: HEPARIN SODIUM 1,000 UNITS/ML VIAL 1000 UNITS IV PUSH (12:16)
[2022-08-07 13:05] LABS: Glucose Point of Care 124 mg/dl (65-105)
--- NOTE | 2022-08-07 13:09 | P.OP_ITS ---
Procedure Note - Detailed Date of Procedure 08/07/22 Pre-op Diagnosis Malignant Neoplasm of Breast, inadequate venous access for chemotherapy Post-op Diagnosis Same Procedure Performed Placement left subclavian vortex Port-A-Cath under fluoroscopy Surgeon Addison Ortiz MD Steaming Cabinet Tender Addison moss MANAGER LOSS PREVENTION Anesthesia General (LMA) and Local (0.25% Marcaine with epinephrine) Indications Patient is a 72-year-old woman who had lumpectomy and sentinel node biopsy for a left breast lobular invasive cancer. She is to have chemotherapy and a Port-A-Cath has been requested for administration. She is taken to surgery now for this purpose. Findings Tip of the Port-A-Cath is in the distal SVC, right atrial junction. Postprocedure chest x-ray by my review showed no pneumothorax and the Port-A-Cath to be in good position. Description of Procedure Patient was taken to surgery and placed in supine position. IV sedation was administered. The right subclavian and right neck areas were prepped and draped. The proposed right subclavian incision was marked on the skin. Local anesthesia was infiltrated in the area the skin and the deeper subcutaneous tissues. Incision was made and dissection was carried down through the subcutaneous. A subcutaneous pocket was then created. I did excise some of the subcutaneous fat so that the pectoralis major fascia was exposed. Additional local was infiltrated into the pocket and under the right clavicle. The right subclavian vein was then cannulated. A guidewire was passed into the superior vena cava. The position was documented by C-arm fluoroscopy. I then laid the Port-A-Cath tubing over the guidewire path and with fluoroscopy cut the Port-A-Cath the appropriate length. An introducer and sheath was then passed over the guidewire and into the superior vena cava by fluoroscopy. I then removed the guidewire and the introducer. The Port-A-Cath tubing was passed through the sheath and into the superior vena cava. The sheath was then removed. The Port-A-Cath was placed in the pocket. I sutured the Port-A-Cath to the pectoralis major fascia. Port-A-Cath was easily palpable on the chest wall below the incision area. I then checked the Port-A-Cath. It was cannulated with a Joya needle. It aspirated blood easily and flushed well with heparin. Port-A-Cath was flushed with heparin. I then closed the wound with running 2-0 Vicryl suture in layers. The skin was closed with running 4-0 Monocryl skin suture. The wound was dressed with Exofin surgical adhesive. The patient was awakened and taken to recovery in good condition. Sponge and needle counts were correct x2. Estimated Blood Loss -5.0 Drains No Packing No Pathology None sent Complications No immediate complications Condition Stable Disposition PACU [facility] Billing Surgery - Charge Forward: Surgery Billing (Placement right subclavian Port-A-Cath under fluoroscopy)
== END 2022-08-07 14:44 | disposition home or self-care (01) ==
PROVIDERS: PCP Internal Medicine; Visit Provider Surgery
PROC: (CPT 36561; principal; 2022-08-07 13:00)
DX: C50.912 Malignant neoplasm of unspecified site of left female breast (principal); E11.9 Type 2 diabetes mellitus without complications; E78.5 Hyperlipidemia, unspecified; I10 Essential (primary) hypertension; K21.9 Gastro-esophageal reflux disease without esophagitis; E66.9 Obesity, unspecified; Z68.35 Body mass index [BMI] 35.0-35.9, adult; G47.33 Obstructive sleep apnea (adult) (pediatric); E55.9 Vitamin D deficiency, unspecified; Z87.891 Personal history of nicotine dependence
CPT/HCPCS: 36561; 36415; 77001; 80048; 82948; 85025; 85610; 85730; C1788; J0690; J1644; J1885; J2405; J2704; J3010; J7030; J7120

== ENCOUNTER → 2023-12-03 10:54 | Outpatient (CLI) | payer OTHER, SELFPAY ==
--- NOTE | ~2023-12-03 | DEXA_ITS ---
Bone Density Report Name: ZAHIRA SILVESTRE Age: 73 Sex: Female Ethnicity: White Date of : 1950 Indication: postmenopausal; screening for osteoporosis; height loss; cancer; Referring Provider: Ranjan Salinas Study: Bone densitometry was performed. Exam Date: December 03, 2023 Accession number: [id number] Bone Density: Region BMD T-score Z-score Classification AP Spine (L1-L4) 1.135 0.8 3.1 Normal Femoral Neck (Left) 0.634 -1.9 0.1 Osteopenia Total Hip (Left) 0.844 -0.8 0.9 Normal Femoral Neck (Right) 0.720 -1.2 0.8 Osteopenia Total Hip (Right) 0.855 -0.7 1.0 Normal Total Hip Mean 0.850 -0.8 1.0 Normal World Health Organization criteria for BMD impression classify patients as: Normal (T-score at or above -1.0), Osteopenia (T-score between -1.0 and -2.5), or Osteoporosis (T-score at or below -2.5). 10-year Fracture Risk(1): Major Osteoporotic Fracture 12% Hip Fracture 2.5% Reported Risk Factors: [place] (), Neck BMD=0.634, BMI=34.0 (1) FRAX(R) Version 3.08. Fracture probability calculated for an untreated patient. Fracture probability may be lower if the patient has received treatment. Clinical Information Provided by Patient: Has used the following medications: Vitamin D, Calcium Has the following medical conditions: Cancer Patient maximum height was 61.75 Menopause Age: 54 No regular weight bearing exercise Drinks caffeinated beverages Onset of menses at age 13 Number of children 1 Impression: The patient has low bone mass, based on the Left Femoral Neck T-score. The patient has an estimated ten-year risk of hip fracture of 2.5% and an estimated ten-year risk of major fracture of 12%, based on the WHO FRAX algorithm. Discussion: BONE DENSITY IS LOW AT ONE OR MORE SKELETAL SITES. This patient's lowest T-score is low at one or more skeletal sites. It meets the World Health Organization's (WHO) criteria for ?low bone mass? (T-score between -1.0 and -2.5). The patient's 10-year risk of fracture as calculated by FRAX is less than the threshold where pharmacological therapy is recommended by the National Osteoporosis Foundation (NOF). However, all treatment decisions require clinical judgment and consideration of individual patient factors, including patient preferences, comorbidities, previous drug use, risk factors not captured in the FRAX model (e.g., frailty, falls, vitamin D deficiency, increased bone turnover, interval significant decline in bone density) and possible under or overestimation of fracture risk by FRAX. The patient should follow a healthful lifestyle (good nutrition with adequate calcium and vitamin D, and appropriate weight-bearing exercise). Follow-Up: Consider repeating this study in 2 to 3 years to reassess this patient's status, or sooner if there is some ne
== END ==
PROVIDERS: PCP Internal Medicine Hematology & Oncology; Visit Provider Internal Medicine Hematology & Oncology
DX: M85.89 Other specified disorders of bone density and structure, multiple sites (principal)
CPT/HCPCS: 77080

== ENCOUNTER 2024-01-08 05:07 | Day surgery (SDC) | payer OTHER, SELFPAY ==
--- NOTE | 2024-01-01 11:30 | PC.NURSE ---
Report to the Outpatient Waiting Room, entrance under the green pavilion located off [facility], at time __0600 on date __01/08/24 . Planned Procedure Time: _0730 . Time changes happen often and if your time is changed the preop area will call you the afternoon before. - You and your visitor will be asked to self-screen and do not enter if you have any COVID symptoms. - A mask is optional within the hospital at this time. Patients may have clear liquids (water, carbonated beverages, clear teas, apple juice) until 3 hours prior to surgery( 4:30 AM) with a maximum of 20 ounces. - No food from midnight until time of surgery - Infants may have breast milk until 4 hours before surgery, infant formula 6 hours prior to surgery. - Children will be allowed to drink immediately following surgery. If applicable, please bring a bottle or sippy cup to assist with drinking. Juice, water, soda, and popsicles are readily available. For infants on formula, please bring formula the day of surgery. Pacifiers are allowed. Take the following medications with a SIP of water the morning of surgery: NONE DO NOT STOP ANY OF YOUR OTHER PRESCRIPTION MEDICATIONS PRIOR TO SURGERY ?EXCEPT THE FOLLOWING Medications to discontinue per physician ____ALL VITAMINS AND SUPPLEMENTS 3 DAYS LAST DOSE 01/04/24 Please no make-up, nail paraguayan, hairspray, perfume, deodorant, or body powder the day of surgery. No jewelry (including any body piercings) or valuables the day of surgery, leave them at home. Please take a shower or bath the night before, or the morning of, surgery with an antibacterial soap. Wear comfortable, loose fitting clothing. Children are encouraged to wear pajamas. - Jewelry must be removed prior to entering the operating room. Rings and piercings that are not removed may be cut off. - The hospital will not accept responsibility for valuables. - Please leave all valuables, including medications, at home the day of surgery. If you are going home after surgery, a licensed new autos delivery driver must drive you home. - NO public transportation without another adult if you receive anesthesia. - We recommend that an adult stay with you for 24 hours following discharge. - We also recommend that you do not drive, make important decision, drink alcoholic beverages, or take any drugs that were not prescribed by your health care provider for at least 24 hours after your discharge time. Follow any additional instructions given to you from your surgeon. If you or anyone in your household have experienced Covid symptoms in the past week, please notify your surgeon or the nurse liaison at the phone number below for possible testing. Telephone instructions given to ___PATIENT and asked if any additional questions and then verbalized understanding. Patient advised to call surgeon office or pre surgery nurse liaison [phone] if any additional questions.
[2024-01-01 11:38] VITALS: BMI 32.9
[2024-01-08 06:24] VITALS: BP 138/83; PULSE 77; RESP 20; TEMP 37.4; O2SAT 98
[2024-01-08] MEDS: LACTATED RINGERS 1,000 ML 30 ML IV CONT (06:55)
--- NOTE | 2024-01-08 07:03 | WPDANESEPPF ---
Anes - Initial Pre Proc Eval Procedure: Operation Date: 01/08/24 07:30 Proposed Procedures p Removal of Nichelle Cath - Carson Pate MD Date/Time: 01/08/24 07:03 Surgeon: Carson Ptae MD Pre Op Diagnosis: malignant neoplasm of outer quadrant left breast Patient Data Age: 73 Gender: F Height: 1.5 m Weight: 73.95 kg Allergies Allergy/AdvReac Type Severity Reaction Status Date / Time Sulfa (Sulfonamide Allergy Mild Fatigued Verified 01/01/24 11:13 Antibiotics) onion AdvReac Intermediate Diarrhea Verified 01/01/24 11:13 Home Medications Medication Instructions Recorded Confirmed Type lisinopril 40 mg tablet See Rx Instructions .Route 12/02/23 01/08/24 Rx .COMPLEX #90 tabs rosuvastatin 5 mg tablet See Rx Instructions .Route 12/02/23 01/08/24 Rx .COMPLEX #90 tabs metformin 500 mg tablet See Rx Instructions .Route 12/03/23 01/08/24 Rx .COMPLEX #90 tabs fluticasone propionate 50 2 spray intranasal DAILY #48 grams 12/31/23 01/08/24 Rx mcg/actuation nasal spray,suspension Excedrin Extra Strength 2 tablet PO DAILY 01/01/24 01/08/24 History amlodipine 5 mg tablet 5 mg PO QPM 01/01/24 01/08/24 History ascorbic acid (vitamin C) 500 mg 500 mg PO DAILY 01/01/24 01/08/24 History tablet,extended release (Vitamin C ER) calcium 600 mg capsule 600 mg PO DAILY 01/01/24 01/08/24 History cholecalciferol (vitamin D3) 50 50 mcg PO DAILY 01/01/24 01/08/24 History mcg (2,000 unit) capsule lysine 500 mg tablet 500 mg PO DAILY 01/01/24 01/08/24 History multivitamin 1 tablet PO DAILY 01/01/24 01/08/24 History tamoxifen 20 mg tablet 20 mg PO QPM 01/01/24 01/08/24 History vitamin B complex 1 cap PO DAILY 01/01/24 01/08/24 History Patient hx anesthesia problems: none Family hx anesthesia problems: none Results Review: All pre-operative results and documents have been reviewed as part of the pre-operative evaluation. [facility] Past Medical History Medical History Abnormal breast biopsy Diabetes Dyslipidemia Essential hypertension Gastroesophageal reflux disease Hearing loss Hx of abnormal cervical Pap smear IFG (impaired fasting glucose) Malignant neoplasm of unspecified site of left female breast Obesity (BMI 30-39.9) SALOME (obstructive sleep apnea) Osteopenia Peripheral neuropathy Sleep apnea Stress incontinence in female Tinnitus of both ears Vitamin D deficiency, unspecified Family History Family History Mother Hypertension Family history of obesity Family history of osteoporosis Family history of mental disorder Depression Family history of anemia Family history of hepatitis Family history of arthritis Sibling Hypertension Depression Patient's brother is in good health Family history of congestive heart failure Father Family history of diabetes mellitus in first degree relative Family history of heart disease in male family member before age 55 Diabetes mellitus Family history of cardiovascular disease Family history of congestive heart failure Heart disease Social History Social History Smoking packs per day: 0.5 Smoking cigarettes per day: 10.0 Years smoked: 10 Smoking pack-years: 5.00 Smoking status: Former smoker Tobacco type: cigarettes Second hand tobacco smoke exposure: No Smoking end date: 11/09/69 Additional smoking assessment comments: SOCIAL SMOKER TEEN, EARLY 20'S Alcohol intake: never Substance use: never Substance use type: does not use Lack of Transportation: No Lack of Food: Never True Current Housing: I Have Housing Concerned About Future Housing: No Difficulty Paying Gas/Electric Bills: No Difficulty Paying for Meds: No Currently Unemployed: No Education: High School Diploma/GED Living arrangements: alone Spiritual care con
[2024-01-08 07:12] LABS: Glucose Point of Care 122 mg/dl (65-105)
--- NOTE | 2024-01-08 07:34 | PM.IMHP ---
H&P: HPI History of Present Illness Date/Time: 01/08/24 07:34 Chief Complaint: Needs port removed, hx of breast ca Narrative: Pt with hx of left breast ca who underwent BCT. Has not needed chemo tx for over a year. Now presents for removal of the portacatheter. Review of Systems Review of Systems: The remainder of the review of systems to include constitutional, HEENT, cardiovascular, respiratory, GI, , integumentary, musculoskeletal, endocrine, immunologic, hematologic, psychiatric, and neurologic are all negative except for which is mentioned above in the HPI. [facility] Past Medical History Medical History Abnormal breast biopsy Diabetes Dyslipidemia Essential hypertension Gastroesophageal reflux disease Hearing loss Hx of abnormal cervical Pap smear IFG (impaired fasting glucose) Malignant neoplasm of unspecified site of left female breast Obesity (BMI 30-39.9) SALOME (obstructive sleep apnea) Osteopenia Peripheral neuropathy Sleep apnea Stress incontinence in female Tinnitus of both ears Vitamin D deficiency, unspecified Family History Family History Mother Hypertension Family history of obesity Family history of osteoporosis Family history of mental disorder Depression Family history of anemia Family history of hepatitis Family history of arthritis Sibling Hypertension Depression Patient's brother is in good health Family history of congestive heart failure Father Family history of diabetes mellitus in first degree relative Family history of heart disease in male family member before age 55 Diabetes mellitus Family history of cardiovascular disease Family history of congestive heart failure Heart disease Social History Social History Smoking packs per day: 0.5 Smoking cigarettes per day: 10.0 Years smoked: 10 Smoking pack-years: 5.00 Smoking status: Former smoker Tobacco type: cigarettes Second hand tobacco smoke exposure: No Smoking end date: 11/09/69 Additional smoking assessment comments: SOCIAL SMOKER TEEN, EARLY 20'S Alcohol intake: never Substance use: never Substance use type: does not use Lack of Transportation: No Lack of Food: Never True Current Housing: I Have Housing Concerned About Future Housing: No Difficulty Paying Gas/Electric Bills: No Difficulty Paying for Meds: No Currently Unemployed: No Education: High School Diploma/GED Living arrangements: alone Spiritual care concerns: No Meds Home Medications and Allergies Home Medications Medication Instructions Recorded Confirmed Type lisinopril 40 mg tablet See Rx Instructions .Route 12/02/23 01/08/24 Rx .COMPLEX #90 tabs rosuvastatin 5 mg tablet See Rx Instructions .Route 12/02/23 01/08/24 Rx .COMPLEX #90 tabs metformin 500 mg tablet See Rx Instructions .Route 12/03/23 01/08/24 Rx .COMPLEX #90 tabs fluticasone propionate 50 2 spray intranasal DAILY #48 grams 12/31/23 01/08/24 Rx mcg/actuation nasal spray,suspension Excedrin Extra Strength 2 tablet PO DAILY 01/01/24 01/08/24 History amlodipine 5 mg tablet 5 mg PO QPM 01/01/24 01/08/24 History ascorbic acid (vitamin C) 500 mg 500 mg PO DAILY 01/01/24 01/08/24 History tablet,extended release (Vitamin C ER) calcium 600 mg capsule 600 mg PO DAILY 01/01/24 01/08/24 History cholecalciferol (vitamin D3) 50 50 mcg PO DAILY 01/01/24 01/08/24 History mcg (2,000 unit) capsule lysine 500 mg tablet 500 mg PO DAILY 01/01/24 01/08/24 History multivitamin 1 tablet PO DAILY 01/01/24 01/08/24 History tamoxifen 20 mg tablet 20 mg PO QPM 01/01/24 01/08/24 History vitamin B complex 1 cap PO DAILY 01/01/24 01/08/24 History Allergies Allergy/AdvReac Type Severity Reaction Status Date / Time Sulfa (Sulfonamide Allergy Mild Fatigued
--- NOTE | 2024-01-08 07:40 | WPDHPUPDATE1 ---
History and Physical Update Update Date/Time: 01/08/24 07:40 History and Physical has been reviewed, including an updated exam of the patient. There are NO changes in the patient's condition. Risks, benefits, and alternatives have been discussed and questions answered. Patient agrees to proceed with procedure.
[2024-01-08] MEDS: ceFAZolin 2 GM/D5W 50 ML 2 GM/50 ML BAG IVPB (07:44)
[2024-01-08] MEDS: LIDO 1%/EPINEPHRINE 1:100,000 20 ML VIAL 10 ML INFILTRATE (08:01)
[2024-01-08] MEDS: BUPivacaine HCL 0.5% PF 30 ML VIAL 10 ML INFILTRATE (08:01)
[2024-01-08 08:31] VITALS: BP 85/72; PULSE 78; RESP 16; O2SAT 94
--- NOTE | 2024-01-08 08:52 | P.OP_ITS ---
Procedure Note - Detailed Date of Procedure 01/08/24 Pre-op Diagnosis malignant neoplasm of outer quadrant left breast Post-op Diagnosis Same Procedure Performed Removal of right subclavian vein anuradha catheter Surgeon Carson Pate MD Sales Representative [employer] MUÑOZ Anesthesia MAC Indications Patient is a 3-year-old female who had a history of left breast cancer and underwent breast conservation therapy. She has not had any chemotherapy for over a year now presents for removal of the right subclavian vein anuradha catheter. Findings None significant. Description of Procedure After informed consent was obtained patient brought to the operating room she was placed supine position and then IV sedation was administered by anesthesia. The upper anterior neck and chest on the right side was then prepped and draped usual sterile fashion. Time-out was then performed correctly identifying the patient as well as procedure to be performed. She was given perioperative IV antibiotics. 1% lidocaine mixed with 0.5% Marcaine with some epinephrine was then injected around the port and the old scar in the right upper anterior chest. The scalp was then used to excise out the old scar sharply and the tissue was discarded. I then dissected down through the subcutaneous tissue electrocautery to the hub of the port. The catheter was then freed from the surrounding subcutaneous tissue electrocautery and with gentle traction on the catheter was removed from the right subclavian vein. Pressure was then held the area the right subclavian vein to achieve hemostasis. The port was then excised out of the subcutaneous port pocket utilized electrocautery. The port in the attached catheter was then discarded. I then irrigated out the incision sterile saline solution hemostasis was good. I then fulgurated the fibrous port pocket utilized electrocautery. Incision was then closed utilizing interrupted 3-0 Vicryl sutures subcutaneous tissues. Skin edges were then approximated ut ilizing a running subcuticular 4 Monocryl suture. Incision was then cleaned the skin glue was applied. The patient tolerated the procedure well no complications. All sponges, needles, and instrument counts were correct at the end procedure. EBL was _5__cc. The patient was awakened and taken to recovery in stable and satisfactory condition. Implants None Estimated Blood Loss 5 Drains No Packing No Pathology None sent Complications No immediate complications Condition Stable Disposition PACU [facility] Billing Surgery - Charge Forward: Surgery Billing
[2024-01-08 08:53] LABS: Glucose Point of Care 118 mg/dl (65-105)
[2024-01-08 09:00] VITALS: BP 97/53; PULSE 73; RESP 16
[2024-01-08 09:20] VITALS: BP 114/59; PULSE 66; RESP 16
== END 2024-01-08 09:30 | disposition home or self-care (01) ==
PROVIDERS: PCP Family Medicine; Visit Provider Surgery
PROC: (CPT 36589; principal; 2024-01-08 07:30)
DX: Z45.2 Encounter for adjustment and management of vascular access device (principal); Z85.3 Personal history of malignant neoplasm of breast; Z92.21 Personal history of antineoplastic chemotherapy; E11.42 Type 2 diabetes mellitus with diabetic polyneuropathy; E78.5 Hyperlipidemia, unspecified; I10 Essential (primary) hypertension; K21.9 Gastro-esophageal reflux disease without esophagitis; G47.33 Obstructive sleep apnea (adult) (pediatric); E55.9 Vitamin D deficiency, unspecified; N39.3 Stress incontinence (female) (male); E66.9 Obesity, unspecified; Z68.32 Body mass index [BMI] 32.0-32.9, adult; Z79.84 Long term (current) use of oral hypoglycemic drugs; Z79.810 Long term (current) use of selective estrogen receptor modulators (SERMs); Z87.891 Personal history of nicotine dependence
CPT/HCPCS: 36590; 82948; J0690; J1100; J2250; J2371; J2405; J2704; J3010; J7120

== ENCOUNTER 2024-07-06 10:10 | Outpatient (CLI) | payer OTHER, SELFPAY ==
[2024-07-06 10:23] LABS: Basophils Absolute Auto 0.1 K/mm3 (0.0-0.1); Basophils Percent Auto 0.9 % (0.2-1.2); Eosinophils Absolute Auto 0.3 K/mm3 (0-0.3); Eosinophils Percent Auto 4.3 % (0-4.4); Hematocrit 42.8 % (37.0-47.0); Hemoglobin 14.3 g/dL (12.0-15.0); Immature Granulocyte Absolute 0.01 K/mm3 (0.00-0.031); Immature Granulocyte Percent A 0.2 % (0-0.5); Lymphocytes Absolute Auto 1.35 K/mm3 (0.9-3.2); Lymphocytes Percent Auto 20.8 % (18.3-44.2); Mean Corpuscular HGB Conc 33.4 g/dl (32-36); Mean Corpuscular Hemoglobin 29.2 pg (26-34); Mean Corpuscular Volume 87.5 fl (80-100); Mean Platelet Volume 9.6 fl (7.4-10.4); Monocytes Absolute Auto 0.7 K/mm3 (0.1-0.6); Monocytes Percent Auto 10.9 % (2.6-8.5); Neutrophils Absolute Auto 4.1 K/mm3 (1.3-6.7); Neutrophils Percent Auto 62.9 % (45.5-73.1); Platelet Count Result 203 k/mm3 (150-375); Red Blood Count 4.89 M/mm3 (4.2-5.4); Red Cell Distribution Width 13.4 % (11.5-14.5); White Blood Count 6.5 K/mm3 (4.5-10.0)
[2024-07-06 11:05] LABS: Alanine Aminotransferase 20 U/L (6-35); Albumin Level 4.4 g/dL (3.5-5.1); Alkaline Phosphatase 98 U/L (38-126); Anion Gap 14 mmol/L (4-12); Aspartate Amino Transferase 27 U/L (14-36); Bilirubin,Total 0.5 mg/dL (0.2-1.3); Blood Urea Nitrogen 14 mg/dL (7-17); Calcium 8.9 mg/dL (8.4-10.2); Carbon Dioxide 21 mmol/L (22-30); Chloride 104 mmol/L (98-107); Estimated Glomerular Filt Rate > 60; Glucose 99 mg/dL (65-110); Potassium 4.1 mmol/L (3.4-5.0); Sodium 139 mmol/L (137-145)
[2024-07-09 06:03] LABS: CA 15-3 6 U/mL (<32)
== END 2024-07-06 10:11 | disposition home or self-care (01) ==
LOC: ANHLAB 10:12
PROVIDERS: PCP Nurse Practitioner Family; Visit Provider Internal Medicine Hematology & Oncology
DX: C50.512 Malignant neoplasm of lower-outer quadrant of left female breast (principal); Z17.0 Estrogen receptor positive status [ER+]
CPT/HCPCS: 36415; 80053; 85025; 86300

== ENCOUNTER 2025-01-06 09:37 | Outpatient (CLI) | payer OTHER, SELFPAY ==
[2025-01-06 09:58] LABS: Basophils Absolute Auto 0.1 K/mm3 (0.0-0.1); Basophils Percent Auto 0.9 % (0.2-1.2); Eosinophils Absolute Auto 0.3 K/mm3 (0-0.3); Hematocrit 41.2 % (37.0-47.0); Hemoglobin 14.2 g/dL (12.0-15.0); Immature Granulocyte Absolute 0.01 K/mm3 (0.00-0.031); Immature Granulocyte Percent A 0.1 % (0-0.5); Lymphocytes Absolute Auto 1.25 K/mm3 (0.9-3.2); Lymphocytes Percent Auto 18.4 % (18.3-44.2); Mean Corpuscular HGB Conc 34.5 g/dl (32-36); Mean Corpuscular Hemoglobin 29.8 pg (26-34); Mean Corpuscular Volume 86.4 fl (80-100); Mean Platelet Volume 9.4 fl (7.4-10.4); Monocytes Absolute Auto 0.7 K/mm3 (0.1-0.6); Neutrophils Absolute Auto 4.5 K/mm3 (1.3-6.7); Neutrophils Percent Auto 66.6 % (45.5-73.1); Platelet Count Result 215 k/mm3 (150-375); Red Blood Count 4.77 M/mm3 (4.2-5.4); Red Cell Distribution Width 13.4 % (11.5-14.5); White Blood Count 6.8 K/mm3 (4.5-10.0)
[2025-01-06 11:38] LABS: Alanine Aminotransferase 19 U/L (6-35); Albumin Level 4.2 g/dL (3.5-5.1); Alkaline Phosphatase 83 U/L (38-126); Anion Gap 12 mmol/L (4-12); Aspartate Amino Transferase 23 U/L (14-36); Bilirubin,Total 0.5 mg/dL (0.2-1.3); Blood Urea Nitrogen 15 mg/dL (7-17); Carbon Dioxide 24 mmol/L (22-30); Chloride 106 mmol/L (98-107); Estimated Glomerular Filt Rate > 60; Glucose 114 mg/dL (65-110); Potassium 4.1 mmol/L (3.4-5.0); Sodium 142 mmol/L (137-145)
[2025-01-06 13:16] LABS: Hemoglobin A1C 5.9 % (<5.7)
[2025-01-07 07:48] LABS: CA 15-3 6 U/mL (<32)
== END 2025-01-06 09:38 | disposition home or self-care (01) ==
LOC: ANHLAB 09:38
PROVIDERS: PCP Nurse Practitioner Family; Visit Provider Internal Medicine Hematology & Oncology
DX: C50.512 Malignant neoplasm of lower-outer quadrant of left female breast (principal); Z17.0 Estrogen receptor positive status [ER+]; E11.9 Type 2 diabetes mellitus without complications
CPT/HCPCS: 36415; 80053; 83036; 85025; 86300

== ENCOUNTER 2025-06-08 15:08 | Outpatient (CLI) | payer OTHER, SELFPAY ==
--- NOTE | ~2025-06-08 | MM_ITS ---
EXAMINATION: MM screening asya BI w barrie HISTORY: Screening TECHNIQUE: Craniocaudal and mediolateral oblique 3-D tomosynthesis images were obtained and synthetic 2-D images were generated. CAD analysis was submitted and interpreted. COMPARISON: Comparison to multiple prior studies sequentially, with oldest reviewed study dated 01/16. BREAST PARENCHYMAL COMPOSITION: Not dense: There are scattered areas of fibroglandular density. FINDINGS: The right breast is stable without evidence for malignancy. There is new focal area of arch itectural distortion in the upper outer quadrant of the left breast. Per clinical history there has b een prior lumpectomy with radiation therapy in the left breast. IMPRESSION: 1. New architectural distortion upper outer quadrant of the left breast. 2. Recommend comparison to interval outside mammograms to assess stability post lumpectomy. BI-RADS Category 0: Incomplete: Needs additional imaging evaluation. Reviewed, dictated and finalized at location B.
--- OUTSIDE RECORDS SUMMARY | 2025-06-08 15:12 | XMS_ITS | Encounter Summary ---
Author Organization [facility] Healthcare Address [address] [place] [address] Care Team Providers Care Draw Hand Name Role Phone Alicia Mcleod MD Primary Care Provider + Reason for Visit * Diagnostic Imaging (Routine) - Closed Specialty Diagnoses / Procedures Referred By Contac t Referred To Contact Procedures Breast Imaging Screening Outside Reference Aft, Jennifer Nichols MD PhD [address] [place] [id number] Phone: tel: fax: Referral ID Status Reason Start Date Expiration Date Visits Re quested Visits Authorized [id number] Closed 01/24/2022 02/23/2023 1 1 Encounter Details Date Type Department Care Team (Late st Contact Info) Description 01/18/2018 Hospital Encounter [facility] [address] [place] [phone] Social History Tobacco Use Types Packs/Day Years [...] on file 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 There will be no report generated by a [facility] Radiologist. Narrative [facility] - 01/24/2022 1:31 PM CDT EXAMINATION: Images For Reference Purposes Only us Jennifer Palmer MD PhD IMG MAMMO PROCEDURES Final Result [facility] documented in this encounter Visit Diagnoses Not on filedocumented in this encounter Care Teams Draw Hand Relationship Specialty Start Date End Date Alicia Mcleod MD [address] [place] [address] PCP - General 03/12/16 01/16/22 documented as of this encounter
--- OUTSIDE RECORDS SUMMARY | 2025-06-08 15:12 | XMS_ITS | Encounter Summary ---
Author Organization [facility] Healthcare Address [address] [place] [address] Care Team Providers Care Bulk System Operator Name Role Phone Unavailable Primary Care Provider Unavailabl e Reason for Visit * Diagnostic Imaging (Routine) - Closed Specialty Diagnoses / Procedures Referred By Contac t Referred To Contact Procedures Breast Imaging US Outside Reference Aft, Jennifer Nichols MD PhD [address] [place] [address] Phone: tel: fax: Referral ID Status Reason Start Date Expiration Date Visits Re quested Visits Authorized [id number] Closed 01/24/2022 02/23/2023 1 1 Encounter Details Date Type Department Care Team (Late st Contact Info) Description 01/25/2016 12:05 AM CDT Hospital Encounter [facility] Radiology [facility] [address] [place], [place] [id number] Social History Tobacco Use Types Packs/Day Years [...] on file 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 There will be no report generated by a [facility] Radiologist. Narrative [facility] - 01/24/2022 1:34 PM CDT EXAMINATION: Images For Reference Purposes Only us Jennifer Palmer MD PhD IMG MAMMO PROCEDURES Final Result [facility] documented in this encounter Visit Diagnoses Not on filedocumented in this encounter
--- OUTSIDE RECORDS SUMMARY | 2025-06-08 15:12 | XMS_ITS | Clinical Summary ---
Author Organization [facility] Address [facility] [place] [address] Care Team Providers Care Broadcast Journalist Name Role Phone Ranjan Salinas MD Unavailable [phone] Girma Mosher MD Primary Care Provider [phone] Allergies Active Allergy Reactions Criticality Noted Date Comments Sulfa (Sulfonamide Antibiotics) Other (See comments) Low Lethargic Medications metFORMIN (GLUCOPHAGE) 500 mg tablet take 1/2 tablet by oral route every day with morning and evening meals 0 0 6 Active Additional Information Patient taking differently:500 mgoral Daily after dinner, Reported on 04/24/2022 amLODIPine (NORVASC) 5 mg tablet take 1 Tablet by oral route every day 0 0 6 Active Additional Information Patient taking differently:5 mgoral Daily after dinner, Reported on 04/24/2022 lisinopril (PRINIVIL,ZESTRI L) 20 mg tablet take 1 tablet by oral route every day 0 0 6 Active Additional Information Patient taking differently:20 mgoral Daily after dinner, Reported on 04/24/2022 aspirin (ASPIR-81) 81 mg tablet take 1 tablet by oral route every day 0 0 6 Active Additional Information Patient taking differently:81 mgoral Daily after dinner, Stopped taking with last biopsy in 03/2022, Informant: Self, Reported on 04/24/2022 rosuvastatin (CRESTOR) 5 mg tablet Take 5 mg by mouth daily after dinner 2 Active fluticasone propionate (FLONASE) 50 mcg/actuation nasal spray Administer 1 spray into each nostril nightly 2 Active ascorbic acid (VITAMIN C ORAL) Take by mouth every morning Active MULTIVITAMIN ORAL Take by mouth every morning Active vitamin E acetate (VITAMIN E ORAL) Take by mouth daily after lunch Active multivitamin with minerals (HAIR,SKIN AND NAILS ORAL) Take by mouth every morning Active CALCIUM-MAGNESIU M-ZINC ORAL Take by mouth 4 (four) times a day Active LYSINE ORAL Take by mouth daily after lunch Active glucosamine HCl/chondroitin anderson (GLUCOSAMINE-CHO NDROITIN ORAL) Take by mouth 2 (two) times a day Active cholecalciferol, vitamin D3, (VITAMIN D3 ORAL) Take by mouth every morning Active melatonin 5 mg capsule Take by mouth nightly Active Lactobacillus acidophilus (PROBIOTIC ORAL) Take by mouth daily after lunch Pre/probiotic Active diphenhydramine HCl (BENADRYL ORAL) Take by mouth nightly Active HYDROcodone-acet aminophen (NORCO) 5-325 mg per tabletIndication s:Pain Take 1-2 tablets by mouth every 4 (four) hours as needed for pain 9 tablet 2 Active docusate sodium (COLACE) 100 mg capsuleIndicatio ns:constipation Take 1 capsule (100 mg total) by mouth 2 (two) times a day with a glass of water 20 capsule 2 Active Active Problems Problem Noted Date Diagnosed Date Invasive ductal carcinoma of breast, female, lef t 03/24/2022 Overview (03/24/2022): Added automatically from request for surgery [id number] Atypical ductal hyperplasia of left breast 03/24 Overview (03/24/2022): Added automatically from request for surgery [id number] Mammogram abnormal 03/03/2022 Surgical History Surgery Date Site/Laterality Comments BREAST BIOPSY 03/13/2022 Left BREAST BIOPSY 11/09/2020 - 11/08/2021 Right BREAST LUMPECTOMY Left cancer Medical History Medical History Date Comments Type 2 diabetes mellitus (HCC) D iabetes type 2 Hypertension Hypertension Sleep apnea Breast cancer (HCC) left breast History of radiation therapy lef t breast History of chemotherapy left gurmeet ast Family History Medical History Relation Name Comments Heart attack Father 2 Myocardial infa rction; Cause of : Myocardial infarction Other Mother 2 Unknown; Cause of : Unknown Relation Name Status Comments Father 1 (Age 54) Father 2 Mother 1 (Age 52) Mother 2 Social History Tobacco Use Types Packs/Day Years [...] on file 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 Gender Identity Female 06/28/2022 8:55 AM CDT Sexual Orientation Not on file Obstetrics History Para Term AB IAB SAB Ectopic Multiple Livin g Live Births 4 1 1 Date Outcome GA Total Labor Labor/2nd/3rd Weight Sex Type Anes PTL Josefina A1 A5 Name Clin Term Last Filed Vital Signs Vital Sign Reading Time Taken Comments Blood Pressure 113/85 04/24/2022 2:30 PM CDT Pulse 76 04/24/2022 2:30 PM CDT Temperature 36 C (96.8 F) 04/24/2022 1:55 PM CDT Respiratory Rate 18 04/24/2022 2:30 PM CDT Oxygen Saturation 97% 04/24/2022 2:30 PM CDT Inhaled Oxygen Concentration - - Weight 81.6 kg (179 lb 14.3 oz) 2022 4:04 PM CDT Height 149.9 cm (4' 11) 2022 4:04 PM CDT Body Mass Index 36.33 2022 4:04 PM CDT Plan of Treatment Health Maintenance Due Date Last Done Comments Colon Cancer Screening-Colonoscopy 1950 Depression Screening 1950 Hepatitis C Screening 1950 Osteoporosis Screening-Bone Density Scan 1950 DTaP/Tdap/Td Vaccine (1 - Tdap) 1961 Hepatitis B Screening 1968 Zoster Vaccine (1 of 2) 2000 Well Visit 65+ 2015 Pneumococcal vaccine 65+ (2 of 2 - PPSV23) 09/17/2019 09/17/2018 Fall Risk Assessment 04/24/2023 04/24/2022 Covid-19 Vaccine (4 - 2023-2 5 season) 2024 08/22/2021, 01/27/2021, 01/05/2021 Influenza Vaccine (#1) 2025 , 08/08/2020, 09/05/2019, Additional history exists Breast Cancer Screening-Mammogram Discontinued 05/16/2024, 05/14/2023, 05/14/2023, Additional history exists Medical Devices Implanted Type [employer] Teacher Device Identifier Shelf Expiration Date Model / Serial / Lot Bard Peripheral V[employer] Ultraclip Bard 17ga 10cm 2 Trigger Permanent Ultrasound [id number] - [id number] Implanted:Qty: 1 on 03/13/[address] [facility] [employer] [id number] / / [employer] Ghiatas 20ga 20cm 7cm Beaded Needle Breast Wire Localization [id number] - [id number] Implanted:Qty: 1 on 04/24/[address] [facility] [employer] [id number] / / [employer] Ghiatas 20ga 15cm 5cm Beaded Needle Breast Wire Localization [id number] - [id number] Implanted:Qty: 1 on 04/24/[address] [facility] [employer] [id number] / / Procedures Procedure Name Priority Date/Time Associated Diagnosis Comments DIAGNOSTIC MAMMOGRAM BILATERAL W TOMAS Schedule Routine, Read Routine (OP Routine) 05/16/2024 10:33 AM CDT Encounter for follow-up surveillance of breast cancer from Last 3 Months or Most Recently Relevant to Health Maintenance Results * Diagnostic Mammogram Bilateral W Tomas (05/16/2024 10:33 AM CDT) Anatomical Region Laterality Modality Breast Bilateral Mammography 05/16/2024 10:3 7 AM CDT Narrative 05/16/2024 10:39 AM CDT EXAM DESCRIPTION: DIAGNOSTIC MAMMOGRAM BILATERAL W TOMAS REASON FOR STUDY: 74-year-old woman with personal history of left breast cancer status post breast conservation therapy in 2021. She comes in today for follow-up of the left breast, and routine screening of the right breast. COMPARISON: 05/14/2023, 05/24/2022, 04/24/2022, 03/13/2022, 03/03/2022, 02/05/2021 TECHNIQUE: CC and MLO digital breast tomosynthesis of both breasts with C view was performed. FINDINGS: DENSITY: There are scattered areas of fibroglandular density. There are expected postoperative changes of breast conservation therapy in the upper outer left breast at middle depth. There is also unchanged left breast trabecular thickening and skin thickening, in keeping with post treatment changes. There are improving post biopsy changes in the right breast, and the right breast port catheter that was seen on the previous examination has been removed in the interval. There are a few benign microcalcifications. No new suspicious findings identified in either breast. IMPRESSION: Expected postoperative and post treatment changes in the left breast. Improving post biopsy changes in the right breast, and interval removal of the right port catheter. No new suspicious findings identified in either breast on mammogram. Continued monthly breast self-examination and clinical follow-up is recommended, and imaging follow-up with bilateral diagnostic mammogram in 12 months per [facility] protocol. BIRADS: 2 - Benign The patient was notified of the results at the time of the examination. THIS IS AN ELECTRONICALLY VERIFIED FINAL REPORT 05/16/2024 10:39 AM - Electronically signed by Francisco Javier Mendoza M.D. RL: CHANA Report ID: [id number] Reading Location: [facility] Clyde Kenney NP IMG MAMMO PROCEDURES Final Result from Last 3 Months or Most Recently Relevant to Health Maintenance Insurance [facility] Care Teams Broadcast Journalist Relationship Specialty Start Date End Date Girma Mosher MD [address] [address] PCP - General Family Practice 05/14/23 Ranjan Salinas MD [address] [phone] Referring Physician Hematology 05/14/23
--- OUTSIDE RECORDS SUMMARY | 2025-06-08 15:12 | XMS_ITS | Clinical Summary ---
Author Organization [facility] Address [facility] [place] [address] Care Team Providers Care Visitor Services Coordinator Name Role Phone Unavailable Primary Care Provider Unavailabl e Social History Tobacco Use Types Packs/Day Years Used Date Smoking Tobacco: Never Assessed Comments Unknown Sex and Gender Information Value Date Recorded Sex Assigned at Not on file Legal Sex Female 7:16 PM CDT Gender Identity Not on file Sexual Orientation Not on file Last Filed Vital Signs Vital Sign Reading Time Taken Comments Blood Pressure 139/94 04/03/2015 1:28 PM CDT Pulse 67 04/03/2015 1:28 PM CDT Temperature - - Respiratory Rate - - Oxygen Saturation - - Inhaled Oxygen Concentration - - Weight 85.5 kg (188 lb 6.4 oz) 04/03/2015 1:28 P M CDT Height 153.7 cm (5' 0.5) 04/03/2015 1:28 PM CDT Body Mass Index 36.19 04/03/2015 1:28 PM CDT Plan of Treatment Health Maintenance Due Date Last Done Comments Colorectal Cancer Screening Colonoscopy (10 Years) 1950 Hepatitis C 1968 DTaP, Tdap and Td Vaccines ( 1 - Tdap) 1969 Pneumococcal Vaccine: 50+ Ye ars (1 of 1 - PCV) 2000 Zoster Vaccines (1 of 2) 2000 Dexa Scan (General) 2015 COVID-19 Vaccine ( - 2023-2 5 season) 2024 RSV Immunization or 60+ Years (1 - 1-dose 75+ series) 2025 Meningococcal B Vaccine Aged Out No l onger eligible based on patient's age to complete this topic Meningococcal Vaccine Aged Out No alexus joseph eligible based on patient's age to complete this topic RSV Immunizations Under 20 Months Aged Out No longer eligible based on patient's age to complete this topic
--- OUTSIDE RECORDS SUMMARY | 2025-06-08 15:12 | XMS_ITS | Encounter Summary ---
Author Organization [facility] Healthcare Address [address] [place] [address] Care Team Providers Care Tool Straightener Name Role Phone Alicia Mcleod MD Primary Care Provider + Reason for Visit * Diagnostic Imaging (Routine) - Closed Specialty Diagnoses / Procedures Referred By Contac t Referred To Contact Procedures Breast Imaging Diagnostic Outside Reference Aft, Jennifer Nichols MD PhD [address] [place] [address] Phone: tel: fax: Referral ID Status Reason Start Date Expiration Date Visits Re quested Visits Authorized [id number] Closed 01/24/2022 02/23/2023 1 1 Encounter Details Date Type Department Care Team (Late st Contact Info) Description 02/05/2021 Hospital Encounter [facility] [address] [place] [phone] Social History Tobacco Use Types Packs/Day Years [...] on file 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 There will be no report generated by a [facility] Radiologist. Narrative [facility] - 01/24/2022 1:32 PM CDT EXAMINATION: Images For Reference Purposes Only us Jennifer Palmer MD PhD IMG MAMMO PROCEDURES Final Result [facility] documented in this encounter Visit Diagnoses Not on filedocumented in this encounter Care Teams Tool Straightener Relationship Specialty Start Date End Date Alicia Mcleod MD [address] [place] [address] PCP - General 03/12/16 01/16/22 documented as of this encounter
--- OUTSIDE RECORDS SUMMARY | 2025-06-08 15:12 | XMS_ITS | Encounter Summary ---
Author Organization [facility] Healthcare Address [address] [place] [address] Care Team Providers Care Long Term Name Role Phone Alicia Mcleod MD Primary Care Provider + Reason for Visit * Diagnostic Imaging (Routine) - Closed Specialty Diagnoses / Procedures Referred By Contac t Referred To Contact Procedures Breast Imaging US Outside Reference Aft, Jennifer Nichols MD PhD [address] [place] [id number] Phone: tel: fax: Referral ID Status Reason Start Date Expiration Date Visits Re quested Visits Authorized [id number] Closed 01/24/2022 02/23/2023 1 1 Encounter Details Date Type Department Care Team (Late st Contact Info) Description 01/17/2021 12:05 AM FUSING MACHINE FEEDER Hospital Encounter [facility] [address] [place] [phone] Social History Tobacco Use Types Packs/Day Years [...] on file 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 Gender Identity Female 06/28/2022 8:55 AM CDT Sexual Orientation Not on file documented as of this encounter Functional Status documented as of this encounter Plan of Treatment Not on file documented as of this encounter Procedures Procedure Name Priority Date/Time Associated Diagnosis Comments BREAST IMAGING US OUTSIDE REFERENCE Routine 01/17/2021 12:05 AM FUSING MACHINE FEEDER documented in this encounter Results * Breast Imaging US Outside Reference (01/17/2021 12:05 AM FUSING MACHINE FEEDER) Impressions [facility] - 01/24/2022 1:33 PM CDT These images are for Reference purposes only and have not been reviewed by [facility]. There will be no report generated by a [facility] Radiologist. Narrative [facility] - 01/24/2022 1:33 PM CDT EXAMINATION: Images For Reference Purposes Only us Jennifer Palmer MD PhD IMG MAMMO PROCEDURES Final Result [facility] documented in this encounter Visit Diagnoses Not on filedocumented in this encounter Care Teams Long Term Relationship Specialty Start Date End Date Alicia Mcleod MD [address] [place] [address] PCP - General 03/12/16 01/16/22 documented as of this encounter
--- OUTSIDE RECORDS SUMMARY | 2025-06-08 15:12 | XMS_ITS | Clinical Summary ---
[facility] Organization [facility] Address [address] [place] [address] Care Team Providers Care Credentialing Specialist Name Role Phone Girma Mosher MD Primary Care Provider [phone] Allergies Active Allergy Reactions Criticality Noted Date Comments Sulfa (Sulfonamide Antibiotics) Other (See Comments) Low 05/26/2022 Lethargic Medications lisinopriL (PRINIVIL) 40 mg tablet Take 40 mg by mouth daily. 2 Active metFORMIN (GLUCOPHAGE) 500 mg tablet TAKE ONE-HALF TABLET BY MOUTH TWICE DAILY 2 Active rosuvastatin (CRESTOR) 5 mg tablet Take 5 mg by mouth daily. 2 Active fluticasone propionate (FLONASE) 50 mcg/spray Gibson, Suspension nasal inhaler 2 Active lidocaine-pril ocaine (EMLA) 2.5-2.5 % CreamIndicatio ns:Malignant neoplasm of lower-outer quadrant of left breast of female, estrogen receptor positive (CMS/HCC) Apply to affected area see administration instructions. Apply to port 30 minutes before treatment. 10 Gram 3 2 Active dexAMETHasone (DECADRON) 4 mg tabletIndicati ons:Malignant neoplasm of lower-outer quadrant of left breast of female, estrogen receptor positive (CMS/HCC) Take 1 Tablet (4 mg) by mouth see administration instructions. Take 1 tablet by mouth twice a day the day before, the day of and the day after chemotherapy. 12 Tablet 2 2 Active amlodipine besylate (AMLODIPINE ORAL) Take 5 mg by mouth. Active tamoxifen (NOLVADEX) 20 mg tablet TAKE 1 TABLET BY MOUTH EVERY DAY 90 Tablet 3 04/08/202 5 Active Active Problems Problem Noted Date Diagnosed Date Malignant neoplasm of lower- outer quadrant of left breast of female, estrogen receptor positive 05/26/2022 Encounters Date Type Department Care Team Description 05/24/2025 External Device Data STL ABSTRACTION Provider, Abstract 05/23/2025 External Device Data STL ABSTRACTION Provider, Abstract 04/26/2025 External Device Data STL ABSTRACTION Provider, Abstract 04/11/2025 External Device Data STL ABSTRACTION Provider, Abstract 03/30/2025 External Device Data STL ABSTRACTION Provider, Abstract 03/29/2025 External Device Data STL ABSTRACTION Provider, Abstract 03/28/2025 External Device Data STL ABSTRACTION Provider, Abstract from Last 3 Months Family History Medical History Relation Name Comments Heart Disease Brother 2 Diabetes Father Heart Disease Father Relation Name Status Comments Brother 1 Alive Brother 2 Father Mother Social History Tobacco Use Types Packs/Day Years Used Date Smoking Tobacco: Never Tobacco Cessation:Counseling Given: Not Answered Alcohol Use Standard Drinks/Week Comments Never 0 (1 standard drink = 0.6 oz pur e alcohol) Comments No Sex and Gender Information Value Date Recorded Sex Assigned at Not on file Legal Sex Female 4:07 PM CDT Gender Identity Not on file Sexual Orientation Not on file Last Filed Vital Signs Vital Sign Reading Time Taken Comments Blood Pressure 128/79 01/12/2025 10:50 AM DAY HAUL OR FARM CHARTER BUS DRIVER Pulse 72 01/12/2025 10:48 AM DAY HAUL OR FARM CHARTER BUS DRIVER Temperature 36.2 C (97.1 F) 01/12/2025 10:48 AM DAY HAUL OR FARM CHARTER BUS DRIVER Respiratory Rate 15 01/12/2025 10:48 AM DAY HAUL OR FARM CHARTER BUS DRIVER Oxygen Saturation 97% 01/12/2025 10:48 AM DAY HAUL OR FARM CHARTER BUS DRIVER Inhaled Oxygen Concentration - - Weight 78 kg (172 lb) 01/12/2025 10:48 AM DAY HAUL OR FARM CHARTER BUS DRIVER Height 149.9 cm (4' 11) 08/27/2022 10:52 AM CDT Body Mass Index 34.74 08/27/2022 10:52 AM CDT Plan of Treatment Upcoming Encounters Date Type Department Care Team (Late st Contact Info) Description 07/25/2025 10:15 AM CDT Office Visit [facility] [place] [address] [facility] [address] [place] [phone] Ranjan Salinas MD [address] [facility] [address] [place] [address] Health Maintenance Due Date Last Done Comments DTAP/TDAP/TD VACCINES (1 - Tdap) 1969 COLORECTAL SCREENING 1995 Colorectal Cancer Screening 1995 FIT-DNA Q 3 years 1995 FIT/FOBT Q 1 year 1995 Flex Sig/CT Colonography Q 5 years 1995 PNEUMOCOCCAL VACCINE 50+ YEARS (1 of 1 - PCV) 05/07/20 00 ZOSTER VACCINE (1 of 2) 2000 OSTEOPOROSIS SCREENING 2015 RSV VACCINE (60+ or ) (1 - 1-dose 75+ series) 2025 INFLUENZA VACCINE (#1) 2025 Insurance [facility] MCR Care Teams Credentialing Specialist Relationship Specialty Start Date End Date Girma Mosher MD [address] [place] [address] PCP - General Family Practice 05/29/23
--- OUTSIDE RECORDS SUMMARY | 2025-06-08 15:12 | XMS_ITS | Encounter Summary ---
Author Organization [facility] Healthcare Address [address] [place] [address] Care Team Providers Care Counseling Aide Name Role Phone Alicia Mcleod MD Primary Care Provider + Reason for Visit * Diagnostic Imaging (Routine) - Closed Specialty Diagnoses / Procedures Referred By Contac t Referred To Contact Procedures Breast Imaging Diagnostic Outside Reference Aft, Jennifer Nichols MD PhD [address] [place] [address] Phone: tel: fax: Referral ID Status Reason Start Date Expiration Date Visits Re quested Visits Authorized [id number] Closed 01/24/2022 02/23/2023 1 1 Encounter Details Date Type Department Care Team (Late st Contact Info) Description 01/17/2021 Hospital Encounter [facility] [address] [place] [id number] Social History Tobacco Use Types Packs/Day Years [...] on file Legal Sex Female 4:01 AM CLEAT LAYER Gender Identity Female 06/28/2022 8:55 AM CDT Sexual Orientation Not on file documented as of this encounter Functional Status documented as of this encounter Plan of Treatment Not on file documented as of this encounter Procedures Procedure Name Priority Date/Time Associated Diagnosis Comments BREAST IMAGING MG DIAGNOSTIC OUTSIDE REFERENCE Routine 01/17/2021 12:00 AM CLEAT LAYER documented in this encounter Results * Breast Imaging Diagnostic Outside Reference (01/17/2021 12:00 AM CLEAT LAYER) Impressions [facility] - 01/24/2022 1:32 PM CDT These images are for Reference purposes only and have not been reviewed by [facility]. There will be no report generated by a [facility] Radiologist. Narrative [facility] - 01/24/2022 1:32 PM CDT EXAMINATION: Images For Reference Purposes Only us Jennifer Palmer MD PhD IMG MAMMO PROCEDURES Final Result [facility] documented in this encounter Visit Diagnoses Not on filedocumented in this encounter Care Teams Counseling Aide Relationship Specialty Start Date End Date Alicia Mcleod MD [address] [place] [address] PCP - General 03/12/16 01/16/22 documented as of this encounter
--- OUTSIDE RECORDS SUMMARY | 2025-06-08 15:12 | XMS_ITS | Encounter Summary ---
Author Organization [facility] Healthcare Address [address] [place] [address] Care Team Providers Care Accounting Manager Assistant Controller Name Role Phone Unavailable Primary Care Provider Unavailabl e Reason for Visit * Diagnostic Imaging (Routine) - Closed Specialty Diagnoses / Procedures Referred By Contac t Referred To Contact Procedures Breast Imaging Screening Outside Reference Aft, Jennifer Nichols MD PhD [address] [place] [address] Phone: tel: fax: Referral ID Status Reason Start Date Expiration Date Visits Re quested Visits Authorized [id number] Closed 01/24/2022 02/23/2023 1 1 Encounter Details Date Type Department Care Team (Late st Contact Info) Description 01/17/2016 Hospital Encounter [facility] [address] [place], [place] [phone] Social History Tobacco Use Types Packs/Day Years [...] on file 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 Gender Identity Female 06/28/2022 8:55 AM CDT Sexual Orientation Not on file documented as of this encounter Functional Status documented as of this encounter Plan of Treatment Not on file documented as of this encounter Procedures Procedure Name Priority Date/Time Associated Diagnosis Comments BREAST IMAGING MG SCREENING OUTSIDE REFERENCE Routine 01/17/2016 12:00 AM MEDICAL BILLER CODER documented in this encounter Results * Breast Imaging Screening Outside Reference (01/17/2016 12:00 AM MEDICAL BILLER CODER) Impressions [facility] - 01/24/2022 1:32 PM CDT These images are for Reference purposes only and have not been reviewed by [facility]. There will be no report generated by a [facility] Radiologist. Narrative [facility] - 01/24/2022 1:32 PM CDT EXAMINATION: Images For Reference Purposes Only us Jennifer Palmer MD PhD IMG MAMMO PROCEDURES Final Result [facility] documented in this encounter Visit Diagnoses Not on filedocumented in this encounter
--- OUTSIDE RECORDS SUMMARY | 2025-06-08 15:12 | XMS_ITS | Encounter Summary ---
Author Organization [facility] Healthcare Address [address] [place] [address] Care Team Providers Care Store Coordinator Name Role Phone Alicia Mcleod MD Primary Care Provider + Reason for Visit * Diagnostic Imaging (Routine) - Closed Specialty Diagnoses / Procedures Referred By Contac t Referred To Contact Procedures Breast Imaging Diagnostic Outside Reference Aft, Jennifer Nichols MD PhD [address] [place] [address] Phone: tel: fax: Referral ID Status Reason Start Date Expiration Date Visits Re quested Visits Authorized [id number] Closed 01/24/2022 02/23/2023 1 1 Encounter Details Date Type Department Care Team (Late st Contact Info) Description 05/19/2019 Hospital Encounter [facility] [address] [place] [address] [phone] Social History Tobacco Use Types Packs/Day Years [...] on file Legal Sex Female 4:[address] Gender Identity Female 06/28/2022 8:55 AM CDT [...] only and have not been reviewed by [facility] Radiology. There will be no report generated by a [facility] Radiologist. Narrative [facility] - 01/24/2022 1:33 PM CDT EXAMINATION: Images For Reference Purposes Only us Jennifer Palmer MD PhD IMG MAMMO PROCEDURES Final Result [facility] documented in this encounter Visit Diagnoses Not on filedocumented in this encounter Care Teams Store Coordinator Relationship Specialty Start Date End Date Alicia Mcleod MD [address] [place] [address] PCP - General 03/12/16 01/16/22 documented as of this encounter
--- OUTSIDE RECORDS SUMMARY | 2025-06-08 15:12 | XMS_ITS | Encounter Summary ---
Author Organization [facility] Healthcare Address [address] [place] [address] Care Team Providers Care Japanese Professor Name Role Phone Alicia Mcleod MD Primary Care Provider + Reason for Visit * Diagnostic Imaging (Routine) - Closed Specialty Diagnoses / Procedures Referred By Contac t Referred To Contact Procedures Breast Imaging US Outside Reference Aft, Jennifer Nichols MD PhD [address] [place] [address] Phone: tel: fax: Referral ID Status Reason Start Date Expiration Date Visits Re quested Visits Authorized [id number] Closed 01/24/2022 02/23/2023 1 1 Encounter Details Date Type Department Care Team (Late st Contact Info) Description 02/05/2021 12:05 AM CDT Hospital Encounter [facility] [address] [place] [phone] Social History Tobacco Use Types Packs/Day Years [...] on file 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 There will be no report generated by a [facility] Radiologist. Narrative [facility] - 01/24/2022 1:34 PM CDT EXAMINATION: Images For Reference Purposes Only us Jennifer Palmer MD PhD IMG MAMMO PROCEDURES Final Result [facility] documented in this encounter Visit Diagnoses Not on filedocumented in this encounter Care Teams Japanese Professor Relationship Specialty Start Date End Date Alicia Mcleod MD [address] [place] [address] PCP - General 03/12/16 01/16/22 documented as of this encounter
--- OUTSIDE RECORDS SUMMARY | 2025-06-08 15:12 | XMS_ITS | Encounter Summary ---
Author Organization [facility] Healthcare Address [address] [place] [address] Care Team Providers Care Respiratory Therapy Assistant Name Role Phone Unavailable Primary Care Provider Unavailabl e Reason for Visit * Diagnostic Imaging (Routine) - Closed Specialty Diagnoses / Procedures Referred By Contac t Referred To Contact Procedures Breast Imaging Diagnostic Outside Reference Aft, Jennifer Nichols MD PhD [address] [place] [address] Phone: tel: fax: Referral ID Status Reason Start Date Expiration Date Visits Re quested Visits Authorized [id number] Closed 01/24/2022 02/23/2023 1 1 Encounter Details Date Type Department Care Team (Late st Contact Info) Description 01/25/2016 Hospital Encounter [facility] [address] [place], [place] [phone] Social History Tobacco Use Types Packs/Day Years [...] on file 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 There will be no report generated by a [facility] Radiologist. Narrative [facility] - 01/24/2022 1:33 PM CDT EXAMINATION: Images For Reference Purposes Only us Jennifer Palmer MD PhD IMG MAMMO PROCEDURES Final Result [facility] documented in this encounter Visit Diagnoses Not on filedocumented in this encounter
--- OUTSIDE RECORDS SUMMARY | 2025-06-08 15:12 | XMS_ITS | Referral Summary ---
Author Organization [facility] Address [facility] [place] [address] Care Team Providers Care Manager Client Service Name Role Phone Ranjan Salinas MD Unavailable [phone] Girma Mosher MD Primary Care Provider [phone] Allergies Active Allergy Reactions Criticality Noted Date [...] (03/24/2022): Added automatically from request for surgery [id number] Atypical ductal hyperplasia of left breast 03/24 Overview (03/24/2022): Added automatically from request for surgery [id number] Mammogram abnormal 03/03/2022 Social History Tobacco Use Types Packs/Day Years [...] on file Legal Sex Female 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 Gender Identity Female 06/28/2022 8:55 AM CDT Sexual Orientation Not on file Last Filed [...] 2022 4:04 PM CDT Plan of Treatment Not on file Medical Devices Implanted Type Area Supermarket Manager Device Identifier Shelf Expiration Date Model / Serial / Lot Bard Peripheral Vascular Ultraclip Bard 17ga 10cm 2 Trigger Permanent Ultrasound [id number] - [id number] Implanted:Qty: 1 on 03/13/2022 at [facility] [employer] [id number] / / Bard Peripheral Vascular Ghiatas 20ga 20cm 7cm Beaded Needle Breast Wire Localization 10124 - [id number] Implanted:Qty: 1 on 04/24/2022 at [facility] [employer] [id number] / / Bard Peripheral Vascular Ghiatas 20ga 15cm 5cm Beaded Needle Breast Wire Localization 51065 - [id number] Implanted:Qty: 1 on 04/24/2022 at [facility] [employer] [id number] / / Procedures Procedure Name Priority Date/Time [...] bilateral diagnostic mammogram in 12 months per [facility] protocol. BIRADS: 2 - Benign The patient was notified of the results at the time of the examination. THIS IS AN ELECTRONICALLY VERIFIED FINAL REPORT 05/16/2024 10:39 AM - Electronically signed by Francisco Javier Mendoza M.D. RL: CHANA Report ID: [id number] Reading Location: [facility] Clyde Kenney NP IMG MAMMO PROCEDURES Final Result from Last 3 Months or Most Recently Relevant to Health Maintenance Insurance [facility] Member Subscriber Plan / Payer (Ef fective 2021-Present) Name:Shea Hays Relation to Subscriber:Self Name:Shea Hays Payer ID:[id number] (NAIC) Type:MEDICARE RISK OTHER Address: [place] [id number] [facility] Care Teams Manager Client Service Relationship Specialty Start Date End Date Girma Mosher MD [address] [place] [address] PCP - General Family Practice 05/14/23 Ranjan Salinas MD [address] [place] [address] Referring Physician Hematology 05/14/23
--- OUTSIDE RECORDS SUMMARY | 2025-06-08 15:12 | XMS_ITS | Encounter Summary ---
Author Organization [facility] Healthcare Address [address] [place] [address] Care Team Providers Care Licensed Retail Supervisor Name Role Phone Alicia Mcleod MD Primary Care Provider + Reason for Visit * Diagnostic Imaging (Routine) - Closed Specialty Diagnoses / Procedures Referred By Contac t Referred To Contact Procedures Breast Imaging Screening Outside Reference Aft, Jennifer Nichols MD PhD [address] [place] [address] Phone: tel: fax: Referral ID Status Reason Start Date Expiration Date Visits Re quested Visits Authorized [id number] Closed 01/24/2022 02/23/2023 1 1 Encounter Details Date Type Department Care Team (Late st Contact Info) Description 04/19/2019 Hospital Encounter [facility] [address] [place] [phone] Social History Tobacco Use Types Packs/Day Years [...] on file 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 There will be no report generated by a [facility] Radiologist. Narrative RAD_MAMMO[facility] - 01/24/2022 1:31 PM CDT EXAMINATION: Images For Reference Purposes Only us Jennifer Palmer MD PhD IMG MAMMO PROCEDURES Final Result [facility] documented in this encounter Visit Diagnoses Not on filedocumented in this encounter Care Teams Licensed Retail Supervisor Relationship Specialty Start Date End Date Alicia Mcleod MD [address] [place] [address] PCP - General 03/12/16 01/16/22 documented as of this encounter
--- OUTSIDE RECORDS SUMMARY | 2025-06-08 15:12 | XMS_ITS | Encounter Summary ---
Author Organization [facility] Healthcare Address [address] [place] [address] Care Team Providers Care Warp Preparer Name Role Phone Alicia Mcleod MD Primary Care Provider + Reason for Visit * Diagnostic Imaging (Routine) - Closed Specialty Diagnoses / Procedures Referred By Contac t Referred To Contact Procedures Breast Imaging US Outside Reference Aft, Jennifer Nichols MD PhD [address] [place] [address] Phone: tel: fax: Referral ID Status Reason Start Date Expiration Date Visits Re quested Visits Authorized [id number] Closed 01/24/2022 02/23/2023 1 1 Encounter Details Date Type Department Care Team (Late st Contact Info) Description 05/19/2019 12:05 AM CDT Hospital Encounter [facility] [address] [place] [address] [phone] Social History Tobacco Use Types Packs/Day Years [...] on file 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 There will be no report generated by a [facility] Radiologist. Narrative RAD_M[facility]MO[facility] - 01/24/2022 1:34 PM CDT EXAMINATION: Images For Reference Purposes Only us Jennifer Palmer MD PhD IMG MAMMO PROCEDURES Final Result [facility] documented in this encounter Visit Diagnoses Not on filedocumented in this encounter Care Teams Warp Preparer Relationship Specialty Start Date End Date Alicia Mcleod MD [address] [place] [address] PCP - General 03/12/16 01/16/22 documented as of this encounter
== END 2025-06-08 15:09 | disposition home or self-care (01) ==
LOC: ANHIMG 15:10
PROVIDERS: PCP Nurse Practitioner Family; Visit Provider Internal Medicine Hematology & Oncology
DX: Z12.31 Encounter for screening mammogram for malignant neoplasm of breast (principal); R92.8 Other abnormal and inconclusive findings on diagnostic imaging of breast
CPT/HCPCS: 77063; 77067

== ENCOUNTER 2025-07-18 11:06 | Outpatient (CLI) | payer OTHER, SELFPAY ==
--- OUTSIDE RECORDS SUMMARY | 2016-01-17 01:00 | XMS_ITS | Encounter Summary ---
Author Organization [facility] Healthcare Address [address] [place] [address] Care Team Providers Care Inside Finisher Name Role Phone Unavailable Primary Care Provider Unavailabl e Reason for Visit * Diagnostic Imaging (Routine) - Closed Specialty Diagnoses / Procedures Referred By Contac t Referred To Contact Procedures Breast Imaging Screening Outside Reference Aft, Jennifer Nichols MD PhD [address] [place] [address] Phone: tel: fax: Referral ID Status Reason Start Date Expiration Date Visits Re quested Visits Authorized [id number] Closed 01/24/2022 02/23/2023 1 1 Encounter Details Date Type Department Care Team (Late st Contact Info) Description 01/17/2016 Hospital Encounter [facility] [address] [place], [place] [id number] Social History Tobacco Use Types Packs/Day Years Used Date Smoking Tobacco: Former Cigarettes Smokeless Tobacco: Never Comments:teenage years- smok ed soically Alcohol Use Standard Drinks/Week Comments No 0 (1 standard drink = 0.6 oz pur e alcohol) AUDIT-C Answer Date Recorded Q1: How often do you have a drink containing alc ohol? 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 Gender Identity Female 06/28/2022 8:55 AM CDT Sexual Orientation Not on file documented as of this encounter Functional Status documented as of this encounter Plan of Treatment Not on file documented as of this encounter Procedures Procedure Name Priority Date/Time Associated Diagnosis Comments BREAST IMAGING MG SCREENING OUTSIDE REFERENCE Routine 01/17/2016 12:00 AM MUSIC PASTOR documented in this encounter Results * Breast Imaging Screening Outside Reference (01/17/2016 12:00 AM MUSIC PASTOR) Impressions [facility] - 01/24/2022 1:32 PM CDT These images are for Reference purposes only and have not been reviewed by [facility]. There will be no report generated by a [facility] Radiologist. Narrative [facility] - 01/24/2022 1:32 PM CDT EXAMINATION: Images For Reference Purposes Only us Jennifer Palmer MD PhD IMG MAMMO PROCEDURES Final Result [facility] documented in this encounter Visit Diagnoses Not on filedocumented in this encounter
--- OUTSIDE RECORDS SUMMARY | 2016-01-25 | XMS_ITS | Encounter Summary ---
Author Organization [facility] Healthcare Address [address] [place] [address] Care Team Providers Care Cable Television Technician Name Role Phone Unavailable Primary Care Provider Unavailabl e Reason for Visit * Diagnostic Imaging (Routine) - Closed Specialty Diagnoses / Procedures Referred By Contac t Referred To Contact Procedures Breast Imaging Diagnostic Outside Reference Aft, Jennifer Nichols MD PhD [address] [place] [address] Phone: tel: fax: Referral ID Status Reason Start Date Expiration Date Visits Re quested Visits Authorized [id number] Closed 01/24/2022 02/23/2023 1 1 Encounter Details Date Type Department Care Team (Late st Contact Info) Description 01/25/2016 Hospital Encounter [facility] [address] [place], [place] [id number] Social History Tobacco Use Types Packs/Day Years [...] on file 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 Gender Identity Female 06/28/2022 8:55 AM CDT Sexual Orientation Not on file documented as of this encounter Functional Status documented as of this encounter Plan of Treatment Not on file documented as of this encounter Procedures Procedure Name Priority Date/Time Associated Diagnosis Comments BREAST IMAGING MG DIAGNOSTIC OUTSIDE REFERENCE Routine 01/25/2016 12:00 AM CDT documented in this encounter Results * Breast Imaging Diagnostic Outside Reference (01/25/2016 12:00 AM CDT) Impressions [facility] - 01/24/2022 1:33 PM CDT These images are for Reference purposes only and have not been reviewed by [facility]. There will be no report generated by a [facility] Radiologist. Narrative [facility] - 01/24/2022 1:33 PM CDT EXAMINATION: Images For Reference Purposes Only us Jennifer Palmer MD PhD IMG MAMMO PROCEDURES Final Result [facility] documented in this encounter Visit Diagnoses Not on filedocumented in this encounter
--- OUTSIDE RECORDS SUMMARY | 2016-01-25 00:05 | XMS_ITS | Encounter Summary ---
Author Organization [facility] Healthcare Address [address] [place] [address] Care Team Providers Care Roof Tile Layer Name Role Phone Unavailable Primary Care Provider Unavailabl e Reason for Visit * Diagnostic Imaging (Routine) - Closed Specialty Diagnoses / Procedures Referred By Contac t Referred To Contact Procedures Breast Imaging US Outside Reference Aft, Jennifer Nichols MD PhD [address] [place] [address] Phone: tel: fax: Referral ID Status Reason Start Date Expiration Date Visits Re quested Visits Authorized [id number] Closed 01/24/2022 02/23/2023 1 1 Encounter Details Date Type Department Care Team (Late st Contact Info) Description 01/25/2016 12:05 AM CDT Hospital Encounter [facility]iology [facility] [address] [place], [place] [id number] Social History Tobacco Use Types Packs/Day Years [...] on file 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 Gender Identity Female 06/28/2022 8:55 AM CDT Sexual Orientation Not on file documented as of this encounter Functional Status documented as of this encounter Plan of Treatment Not on file documented as of this encounter Procedures Procedure Name Priority Date/Time Associated Diagnosis Comments BREAST IMAGING US OUTSIDE REFERENCE Routine 01/25/2016 12:05 AM CDT documented in this encounter Results * Breast Imaging US Outside Reference (01/25/2016 12:05 AM CDT) Impressions [facility] - 01/24/2022 1:34 PM CDT These images are for Reference purposes only and have not been reviewed by [facility] Radiology. There will be no report generated by a [facility] Radiologist. Narrative [facility] - 01/24/2022 1:34 PM CDT EXAMINATION: Images For Reference Purposes Only us Jennifer Palmer MD PhD IMG MAMMO PROCEDURES Final Result [facility] documented in this encounter Visit Diagnoses Not on filedocumented in this encounter
--- OUTSIDE RECORDS SUMMARY | 2018-01-18 | XMS_ITS | Encounter Summary ---
Author Organization [facility] Healthcare Address [address] [place] [address] Care Team Providers Care Auditing Manager Name Role Phone Alicia Mcleod MD Primary Care Provider + Reason for Visit * Diagnostic Imaging (Routine) - Closed Specialty Diagnoses / Procedures Referred By Contac t Referred To Contact Procedures Breast Imaging Screening Outside Reference Aft, Jennifer Nichols MD PhD [address] [place] [address] Phone: tel: fax: Referral ID Status Reason Start Date Expiration Date Visits Re quested Visits Authorized [id number] Closed 01/24/2022 02/23/2023 1 1 Encounter Details Date Type Department Care Team (Late st Contact Info) Description 01/18/2018 Hospital Encounter [facility]iology [facility] [address] [place] [phone] Social History Tobacco Use Types Packs/Day Years [...] on file 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 Gender Identity Female 06/28/2022 8:55 AM CDT Sexual Orientation Not on file documented as of this encounter Functional Status documented as of this encounter Plan of Treatment Not on file documented as of this encounter Procedures Procedure Name Priority Date/Time Associated Diagnosis Comments BREAST IMAGING MG SCREENING OUTSIDE REFERENCE Routine 01/18/2018 12:00 AM CDT documented in this encounter Results * Breast Imaging Screening Outside Reference (01/18/2018 12:00 AM CDT) Impressions [facility] - 01/24/2022 1:31 PM CDT These images are for Reference purposes only and have not been reviewed by [facility] Radiology. There will be no report generated by a [facility] Radiologist. Narrative [facility] - 01/24/2022 1:31 PM CDT EXAMINATION: Images For Reference Purposes Only us Jennifer Palmer MD PhD IMG MAMMO PROCEDURES Final Result [facility] documented in this encounter Visit Diagnoses Not on filedocumented in this encounter Care Teams Auditing Manager Relationship Specialty Start Date End Date Alicia Mcleod MD [address] [place] [address] PCP - General 03/12/16 01/16/22 documented as of this encounter
--- OUTSIDE RECORDS SUMMARY | 2019-04-19 | XMS_ITS | Encounter Summary ---
Author Organization [facility] Healthcare Address [address] [place] [address] Care Team Providers Care Jewel Waxer Name Role Phone Alicia Mcleod MD Primary Care Provider + Reason for Visit * Diagnostic Imaging (Routine) - Closed Specialty Diagnoses / Procedures Referred By Contac t Referred To Contact Procedures Breast Imaging Screening Outside Reference Aft, Jennifer Nichols MD PhD [address] [place] [address] Phone: tel: fax: Referral ID Status Reason Start Date Expiration Date Visits Re quested Visits Authorized [id number] Closed 01/24/2022 02/23/2023 1 1 Encounter Details Date Type Department Care Team (Late st Contact Info) Description 04/19/2019 Hospital Encounter [facility] [address] [place] [phone] Social History Tobacco Use Types Packs/Day Years [...] on file 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 Gender Identity Female 06/28/2022 8:55 AM CDT Sexual Orientation Not on file documented as of this encounter Functional Status documented as of this encounter Plan of Treatment Not on file documented as of this encounter Procedures Procedure Name Priority Date/Time Associated Diagnosis Comments BREAST IMAGING MG SCREENING OUTSIDE REFERENCE Routine 04/19/2019 12:00 AM CDT documented in this encounter Results * Breast Imaging Screening Outside Reference (04/19/2019 12:00 AM CDT) Impressions [facility] - 01/24/2022 1:31 PM CDT These images are for Reference purposes only and have not been reviewed by [facility] Radiology. There will be no report generated by a [facility] Radiologist. Narrative [facility] - 01/24/2022 1:31 PM CDT EXAMINATION: Images For Reference Purposes Only us Jennifer Palmer MD PhD IMG MAMMO PROCEDURES Final Result [facility] documented in this encounter Visit Diagnoses Not on filedocumented in this encounter Care Teams Jewel Waxer Relationship Specialty Start Date End Date Alicia Mcleod MD [address] [place] [address] PCP - General 03/12/16 01/16/22 documented as of this encounter
--- OUTSIDE RECORDS SUMMARY | 2019-05-19 | XMS_ITS | Encounter Summary ---
Author Organization [facility] Healthcare Address [address] [place] [address] Care Team Providers Care Manganese Heater Name Role Phone Alicia Mcleod MD Primary Care Provider + Reason for Visit * Diagnostic Imaging (Routine) - Closed Specialty Diagnoses / Procedures Referred By Contac t Referred To Contact Procedures Breast Imaging Diagnostic Outside Reference Aft, Jennifer Nichols MD PhD [address] [place] [address] Phone: tel: fax: Referral ID Status Reason Start Date Expiration Date Visits Re quested Visits Authorized [id number] Closed 01/24/2022 02/23/2023 1 1 Encounter Details Date Type Department Care Team (Late st Contact Info) Description 05/19/2019 Hospital Encounter [facility] [address] [place] [phone] Social History Tobacco Use Types Packs/Day Years [...] on file 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 Gender Identity Female 06/28/2022 8:55 AM CDT Sexual Orientation Not on file documented as of this encounter Functional Status documented as of this encounter Plan of Treatment Not on file documented as of this encounter Procedures Procedure Name Priority Date/Time Associated Diagnosis Comments BREAST IMAGING MG DIAGNOSTIC OUTSIDE REFERENCE Routine 05/19/2019 12:00 AM CDT documented in this encounter Results * Breast Imaging Diagnostic Outside Reference (05/19/2019 12:00 AM CDT) Impressions [facility] - 01/24/2022 1:33 PM CDT These images are for Reference purposes only and have not been reviewed by [facility] Radiology. There will be no report generated by a [facility] Radiologist. Narrative [facility] - 01/24/2022 1:33 PM CDT EXAMINATION: Images For Reference Purposes Only us Jennifer Palmer MD PhD IMG MAMMO PROCEDURES Final Result [facility] documented in this encounter Visit Diagnoses Not on filedocumented in this encounter Care Teams Manganese Heater Relationship Specialty Start Date End Date Alicia Mcleod MD [address] [place] [address] PCP - General 03/12/16 01/16/22 documented as of this encounter
--- OUTSIDE RECORDS SUMMARY | 2019-05-19 00:05 | XMS_ITS | Encounter Summary ---
Author Organization [facility] Healthcare Address [address] [place] [address] Care Team Providers Care Seam Hammerer Name Role Phone Alicia Mcleod MD Primary Care Provider + Reason for Visit * Diagnostic Imaging (Routine) - Closed Specialty Diagnoses / Procedures Referred By Contac t Referred To Contact Procedures Breast Imaging US Outside Reference Aft, Jennifer Nichols MD PhD [address] [place] [address] Phone: tel: fax: Referral ID Status Reason Start Date Expiration Date Visits Re quested Visits Authorized [id number] Closed 01/24/2022 02/23/2023 1 1 Encounter Details Date Type Department Care Team (Late st Contact Info) Description 05/19/2019 12:05 AM CDT Hospital Encounter [facility] [address] [place] [phone] Social History Tobacco Use Types Packs/Day Years [...] on file 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 Gender Identity Female 06/28/2022 8:55 AM CDT Sexual Orientation Not on file documented as of this encounter Functional Status documented as of this encounter Plan of Treatment Not on file documented as of this encounter Procedures Procedure Name Priority Date/Time Associated Diagnosis Comments BREAST IMAGING US OUTSIDE REFERENCE Routine 05/19/2019 12:05 AM CDT documented in this encounter Results * Breast Imaging US Outside Reference (05/19/2019 12:05 AM CDT) Impressions [facility] - 01/24/2022 1:34 PM CDT These images are for Reference purposes only and have not been reviewed by [facility]. There will be no report generated by a [facility] Radiologist. Narrative [facility] - 01/24/2022 1:34 PM CDT EXAMINATION: Images For Reference Purposes Only us Jennifer Palmer MD PhD IMG MAMMO PROCEDURES Final Result [facility] documented in this encounter Visit Diagnoses Not on filedocumented in this encounter Care Teams Seam Hammerer Relationship Specialty Start Date End Date Alicia Mcleod MD [address] [place] [address] PCP - General 03/12/16 01/16/22 documented as of this encounter
--- OUTSIDE RECORDS SUMMARY | 2021-01-17 01:00 | XMS_ITS | Encounter Summary ---
Author Organization [facility] Healthcare Address [address] [place] [address] Care Team Providers Care Long Term Care Phlebotomist Name Role Phone Alicia Mcleod MD Primary Care Provider + Reason for Visit * Diagnostic Imaging (Routine) - Closed Specialty Diagnoses / Procedures Referred By Contac t Referred To Contact Procedures Breast Imaging Diagnostic Outside Reference Aft, Jennifer Nichols MD PhD [address] [place] [id number] Phone: tel: fax: Referral ID Status Reason Start Date Expiration Date Visits Re quested Visits Authorized [id number] Closed 01/24/2022 02/23/2023 1 1 Encounter Details Date Type Department Care Team (Late st Contact Info) Description 01/17/2021 Hospital Encounter [facility] [address] [place] [address] [phone] Social History Tobacco Use Types Packs/Day Years [...] on file 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 Gender Identity Female 06/28/2022 8:55 AM CDT Sexual Orientation Not on file documented as of this encounter Functional Status documented as of this encounter Plan of Treatment Not on file documented as of this encounter Procedures Procedure Name Priority Date/Time Associated Diagnosis Comments BREAST IMAGING MG DIAGNOSTIC OUTSIDE REFERENCE Routine 01/17/2021 12:00 AM HEAD BATCHER documented in this encounter Results * Breast Imaging Diagnostic Outside Reference (01/17/2021 12:00 AM HEAD BATCHER) Impressions [facility] - 01/24/2022 1:32 PM CDT These images are for Reference purposes only and have not been reviewed by [facility]. There will be no report generated by a [facility]iologist. Narrative [facility] - 01/24/2022 1:32 PM CDT EXAMINATION: Images For Reference Purposes Only us Jennifer Palmer MD PhD IMG MAMMO PROCEDURES Final Result [facility] documented in this encounter Visit Diagnoses Not on filedocumented in this encounter Care Teams Long Term Care Phlebotomist Relationship Specialty Start Date End Date Alicia Mcleod MD [address] [place] [address] PCP - General 03/12/16 01/16/22 documented as of this encounter
--- OUTSIDE RECORDS SUMMARY | 2021-01-17 01:05 | XMS_ITS | Encounter Summary ---
Author Organization [facility] Healthcare Address [address] [place] [address] Care Team Providers Care Case Assembler Name Role Phone Alicia Mcleod MD Primary Care Provider + Reason for Visit * Diagnostic Imaging (Routine) - Closed Specialty Diagnoses / Procedures Referred By Contac t Referred To Contact Procedures Breast Imaging US Outside Reference Aft, Jennifer Nichols MD PhD [address] [place] [id number] Phone: tel: fax: Referral ID Status Reason Start Date Expiration Date Visits Re quested Visits Authorized [id number] Closed 01/24/2022 02/23/2023 1 1 Encounter Details Date Type Department Care Team (Late st Contact Info) Description 01/17/2021 12:05 AM NARROW FABRIC CALENDERER Hospital Encounter [facility]) [address] [place] [address] [phone] Social History Tobacco Use Types Packs/Day Years [...] on file Legal Sex Female 4:01 AM NARROW FABRIC CALENDERER Gender Identity Female 06/28/2022 8:55 AM CDT Sexual Orientation Not on file documented as of this encounter Functional Status documented as of this encounter Plan of Treatment Not on file documented as of this encounter Procedures Procedure Name Priority Date/Time Associated Diagnosis Comments BREAST IMAGING US OUTSIDE REFERENCE Routine 01/17/2021 12:05 AM NARROW FABRIC CALENDERER documented in this encounter Results * Breast Imaging US Outside Reference (01/17/2021 12:05 AM NARROW FABRIC CALENDERER) Impressions [facility] - 01/24/2022 1:33 PM CDT These images are for Reference purposes only and have not been reviewed by [facility]. There will be no report generated by a [facility] Radiologist. Narrative [facility] - 01/24/2022 1:33 PM CDT EXAMINATION: Images For Reference Purposes Only us Jennifer Palmer MD PhD IMG MAMMO PROCEDURES Final Result [facility] documented in this encounter Visit Diagnoses Not on filedocumented in this encounter Care Teams Case Assembler Relationship Specialty Start Date End Date Alicia Mcleod MD [address] [place] [address] PCP - General 03/12/16 01/16/22 documented as of this encounter
--- OUTSIDE RECORDS SUMMARY | 2021-02-05 | XMS_ITS | Encounter Summary ---
Author Organization [facility] Healthcare Address [address] [place] [address] Care Team Providers Care Supervisor [employer]lass Boat Assembly Name Role Phone Alicia Mcleod MD Primary Care Provider + Reason for Visit * Diagnostic Imaging (Routine) - Closed Specialty Diagnoses / Procedures Referred By Contac t Referred To Contact Procedures Breast Imaging Diagnostic Outside Reference Aft, Jennifer Nichols MD PhD [address] [place] [address] Phone: tel: fax: Referral ID Status Reason Start Date Expiration Date Visits Re quested Visits Authorized [id number] Closed 01/24/2022 02/23/2023 1 1 Encounter Details Date Type Department Care Team (Late st Contact Info) Description 02/05/2021 Hospital Encounter [facility] [address] [place] [address] [phone] Social History Tobacco Use Types Packs/Day Years [...] on file Legal Sex Female 4:01 AM RESPIRATORY THERAPIST ASSISTANT Gender Identity Female 06/28/2022 8:55 AM CDT Sexual Orientation Not on file documented as of this encounter Functional Status documented as of this encounter Plan of Treatment Not on file documented as of this encounter Procedures Procedure Name Priority Date/Time Associated Diagnosis Comments BREAST IMAGING MG DIAGNOSTIC OUTSIDE REFERENCE Routine 02/05/2021 12:00 AM CDT documented in this encounter Results * Breast Imaging Diagnostic Outside Reference (02/05/2021 12:00 AM CDT) Impressions [facility] - 01/24/2022 1:32 PM CDT These images are for Reference purposes only and have not been reviewed by [facility]. There will be no report generated by a [facility] Radiologist. Narrative [facility] - 01/24/2022 1:32 PM CDT EXAMINATION: Images For Reference Purposes Only us Jennifer Palmer MD PhD IMG MAMMO PROCEDURES Final Result [facility] documented in this encounter Visit Diagnoses Not on filedocumented in this encounter Care Teams Supervisor [employer] Boat Assembly Relationship Specialty Start Date End Date Alicia Mcleod MD [address] [place] [address] PCP - General 03/12/16 01/16/22 documented as of this encounter
--- OUTSIDE RECORDS SUMMARY | 2021-02-05 00:05 | XMS_ITS | Encounter Summary ---
Author Organization [facility] Healthcare Address [address] [place] [address] Care Team Providers Care Road Maker Name Role Phone Alicia Mcleod MD Primary Care Provider + Reason for Visit * Diagnostic Imaging (Routine) - Closed Specialty Diagnoses / Procedures Referred By Contac t Referred To Contact Procedures Breast Imaging US Outside Reference Aft, Jennifer Nichols MD PhD [address] [place] [phone] Phone: tel: fax: Referral ID Status Reason Start Date Expiration Date Visits Re quested Visits Authorized [id number] Closed 01/24/2022 02/23/2023 1 1 Encounter Details Date Type Department Care Team (Late st Contact Info) Description 02/05/2021 12:05 AM CDT Hospital Encounter [facility] [address] [place] [address] [phone] Social History Tobacco Use Types Packs/Day Years [...] on file Legal Sex Female 4:01 AM TARGETING ACQUISITION OFFICER Gender Identity Female 06/28/2022 8:55 AM CDT Sexual Orientation Not on file documented as of this encounter Functional Status documented as of this encounter Plan of Treatment Not on file documented as of this encounter Procedures Procedure Name Priority Date/Time Associated Diagnosis Comments BREAST IMAGING US OUTSIDE REFERENCE Routine 02/05/2021 12:05 AM CDT documented in this encounter Results * Breast Imaging US Outside Reference (02/05/2021 12:05 AM CDT) Impressions [facility] - 01/24/2022 1:34 PM CDT These images are for Reference purposes only and have not been reviewed by [facility]. There will be no report generated by a [facility] Radiologist. Narrative [facility] - 01/24/2022 1:34 PM CDT EXAMINATION: Images For Reference Purposes Only us Jennifer Palmer MD PhD IMG MAMMO PROCEDURES Final Result [facility] documented in this encounter Visit Diagnoses Not on filedocumented in this encounter Care Teams Road Maker Relationship Specialty Start Date End Date Alicia Mcleod MD [address] [place] [address] PCP - General 03/12/16 01/16/22 documented as of this encounter
[2025-07-18 11:24] LABS: Hematocrit 41.8 % (37.0-47.0); Hemoglobin 14.1 g/dL (12.0-15.0); Immature Granulocyte Percent A 0.1 % (0-0.5); Lymphocytes Absolute Auto 1.32 K/mm3 (0.9-3.2); Mean Corpuscular HGB Conc 33.7 g/dl (32-36); Mean Corpuscular Hemoglobin 29.3 pg (26-34); Mean Corpuscular Volume 86.7 fl (80-100); Nucleated Red Blood Cells Absolute Auto 0.000 K/mm3 (0.0-0.012); Nucleated Red Blood Cells Perc 0.0 % (0.0-0.2); Platelet Count Result 200 k/mm3 (150-375); Red Blood Count 4.82 M/mm3 (4.2-5.4); White Blood Count 7.3 K/mm3 (4.5-10.0)
[2025-07-18 11:56] LABS: Iron 72 ug/dL (37-170)
[2025-07-18 12:01] LABS: Alanine Aminotransferase 16 U/L (6-35); Albumin Level 4.4 g/dL (3.5-5.1); Alkaline Phosphatase 84 U/L (38-126); Anion Gap 9 mmol/L (4-12); Aspartate Amino Transferase 24 U/L (14-36); Bilirubin,Total 0.4 mg/dL (0.2-1.3); Blood Urea Nitrogen 11 mg/dL (7-17); Calcium 9.2 mg/dL (8.4-10.2); Carbon Dioxide 22 mmol/L (22-30); Chloride 106 mmol/L (98-107); Estimated Glomerular Filt Rate > 60; Glucose 92 mg/dL (65-110); Potassium 4.0 mmol/L (3.4-5.0); Sodium 137 mmol/L (137-145); Total Protein 6.9 g/dL (6.3-8.2)
[2025-07-18 12:09] LABS: Percent Iron Saturation 23 % (20-50)
[2025-07-18 12:21] LABS: Free T4 Free Thyroxine 0.92 ng/dL (0.78-2.19)
[2025-07-18 12:29] LABS: Thyroid Stimulating Hormone 3.200 uIU/mL (0.465-4.680)
[2025-07-18 12:39] LABS: Ferritin 61.40 ng/mL (11.1-264)
--- OUTSIDE RECORDS SUMMARY | 2025-07-18 12:57 | XMS_ITS | Clinical Summary ---
Author Organization [facility] Address [facility] [place] [address] Care Team Providers Care Wood Milling Machine Operator Name Role Phone Ranjan Salinas MD Unavailable [phone] Girma Mosher MD Primary Care Provider [phone] Allergies Active Allergy Reactions Criticality Noted Date [...] (03/24/2022): Added automatically from request for surgery [id number] Atypical ductal hyperplasia of left breast 03/24 Overview (03/24/2022): Added automatically from request for surgery [id number] Mammogram abnormal 03/03/2022 Surgical History Surgery Date Site/Laterality Comments BREAST BIOPSY 03/13/2022 Left BREAST BIOPSY 11/09/2020 - 11/08/2021 Right BREAST LUMPECTOMY Left cancer Medical History Medical History Date Comments Type 2 diabetes mellitus Diabete s type 2 Hypertension Hypertension Sleep apnea Breast [...] on file Legal Sex Female 4: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 Gender Identity Female 06/28/2022 8:55 AM [...] Pneumococcal vaccine 65+ (2 of 2 - PCV20 or PCV21) 09/17/2019 09/17/2018 Fall Risk Assessment 04/24/2023 04/24/2022 Covid-19 Vaccine (4 - 2023-2 5 season) 2024 08/22/2021, 01/27/2021, 01/05/2021 Influenza Vaccine (#1) 2025 , 08/08/2020, 09/05/2019, Additional history exists Breast Cancer Screening-Mammogram Discontinued 05/16/2024, 05/14/2023, 05/14/2023, Additional history exists Medical Devices Implanted Type Area Pouch Making Machine Operator Device Identifier Shelf Expiration Date Model / Serial / Lot Bard Peripheral Vascular Ultraclip Bard 17ga 10cm 2 Trigger Permanent Ultrasound [id number] - [id number] Implanted:Qty: 1 on 03/13/2022 at [facility] [employer] [id number] / / Bard Peripheral Vascular Ghiatas 20ga 20cm 7cm Beaded Needle Breast Wire Localization [id number] - [id number] Implanted:Qty: 1 on 04/24/2022 at [facility] [employer] [id number] / / Bard Peripheral Vascular Ghiatas 20ga 15cm 5cm Beaded Needle Breast Wire Localization 22022 - [id number] Implanted:Qty: 1 on 04/24/2022 at [facility] [employer] [id number] / / Procedures Procedure Name Priority Date/Time [...] bilateral diagnostic mammogram in 12 months per [facility] protocol. BIRADS: 2 - Benign The patient was notified of the results at the time of the examination. THIS IS AN ELECTRONICALLY VERIFIED FINAL REPORT 05/16/2024 10:39 AM - Electronically signed by Francisco Javier Mendoza M.D. RL: CHANA Report ID: [id number] Reading Location: [facility] Clyde Kenney NP IMG MAMMO PROCEDURES Final Result from Last 3 Months or Most Recently Relevant to Health Maintenance Insurance [facility] Care Teams Wood Milling Machine Operator Relationship Specialty Start Date End Date Girma Mosher MD [address] [address] PCP - General Family Practice 05/14/23 Ranjan Salinas MD [address] [place] [address] Referring Physician Hematology 05/14/23
--- OUTSIDE RECORDS SUMMARY | 2025-07-18 12:57 | XMS_ITS | Clinical Summary ---
[facility] Organization [facility] Address [address] [place] [address] Care Team Providers Care Science Manager Name Role Phone Girma Mosher MD Primary Care Provider [phone] Allergies Active Allergy Reactions Criticality Noted Date Comments Sulfa (Sulfonamide Antibiotics) Other (See Comments) Low 05/26/2022 Lethargic Medications lisinopriL (PRINIVIL) 40 mg tablet Take 40 mg by mouth daily. 2 Active metFORMIN (GLUCOPHAGE) 500 mg tablet TAKE ONE-HALF TABLET BY MOUTH TWICE DAILY 2 Active rosuvastatin (CRESTOR) 5 mg tablet Take 5 mg by mouth daily. 2 Active fluticasone propionate (FLONASE) 50 mcg/spray [place], Suspension nasal inhaler 2 Active lidocaine-pril ocaine [...] Encounters Date Type Department Care Team Description 07/11/2025 External Device Data [facility] ABSTRACTION Provider, Abstract 06/28/2025 External Device Data [facility]STRA[facility] Provider, Abstract 06/20/2025 External Device Data [facility]STRA[facility] Provider, Abstract 06/08/2025 Orders Only [facility] Oncology and Hematology - Jose Angel [address] [place] [id number] Ranjan Salinas MD 05/24/2025 External Device Data [facility] ABSTRACTION Provider, [...] Comments Blood Pressure 128/79 01/12/2025 10:50 AM ENVIRONMENTAL COMPLIANCE OFFICER Pulse 72 01/12/2025 10:48 AM ENVIRONMENTAL COMPLIANCE OFFICER Temperature 36.2 C (97.1 F) 01/12/2025 10:48 AM ENVIRONMENTAL COMPLIANCE OFFICER Respiratory Rate 15 01/12/2025 10:48 AM ENVIRONMENTAL COMPLIANCE OFFICER Oxygen Saturation 97% 01/12/2025 10:48 AM ENVIRONMENTAL COMPLIANCE OFFICER Inhaled Oxygen Concentration - - Weight 78 kg (172 lb) 01/12/2025 10:48 AM ENVIRONMENTAL COMPLIANCE OFFICER Height 149.9 cm (4' 11) 08/27/2022 10:52 AM CDT Body Mass Index 34.74 08/27/2022 10:52 AM CDT Plan of Treatment Upcoming Encounters Date Type Department Care Team (Late st Contact Info) Description 07/25/2025 10:15 AM CDT Office Visit [facility] Oncology and Hematology - Jose Angel [address] [place] [address] Ranjan Salinas MD [address] [facility] [address] [place] [address] Health Maintenance Due Date Last Done Comments DTAP/TDAP/TD VACCINES (1 - Tdap) 1969 COLORECTAL SCREENING 1995 Colorectal Cancer Screening 1995 FIT-DNA Q 3 years 1995 FIT/FOBT Q 1 year 1995 Flex Sig/CT Colonography Q 5 years 1995 PNEUMOCOCCAL VACCINE 50+ YEARS (1 of 1 - PCV) 05/07/20 00 ZOSTER VACCINE (1 of 2) 2000 OSTEOPOROSIS SCREENING 2015 Medicare Ad[place]age ([place]) Prev entative Visit/Annual Wellness Visit 11/09/2024 RSV VACCINE (60+ or ) (1 - 1-dose 75+ series) 2025 INFLUENZA VACCINE (#1) 2025 Procedures Procedure Name Priority Date/Time Associated Diagnosis Comments MAMMO SCREENING BILAT Routine 06/08/2025 4:12 PM CDT from Last 3 Months Results * MAMMO SCREENING BILAT (06/08/2025 4:12 PM CDT) Anatomical Region Laterality Modality Breast Bilateral Mammography Ranjan Salinas MD MAMMO ORDERABLES Final Result from Last 3 Months Insurance [facility] [place]: [place] [address] Care Teams Science Manager Relationship Specialty Start Date End Date Girma Mosher MD [address] [place] [id number] PCP - General Family Practice 05/29/23
--- OUTSIDE RECORDS SUMMARY | 2025-07-18 12:57 | XMS_ITS | Clinical Summary ---
Author Organization [facility] Address [facility] [place] [address] Care Team Providers Care Account Development Specialist Name Role Phone Unavailable Primary Care Provider [...] of 2) 2000 Dexa Scan (General) 2015 RSV Immunization or 60+ Years (1 - 1-dose 75+ series) 2025 COVID-19 Vaccine ( - 2023-2 5 season) 2025 Meningococcal B Vaccine Aged Out No l onger eligible based on patient's age to complete this topic Meningococcal Vaccine Aged Out No alexus joseph eligible based on patient's age to complete this topic RSV Immunizations Under 20 Months Aged Out No longer eligible based on patient's age to complete this topic
== END 2025-07-18 11:07 | disposition home or self-care (01) ==
LOC: ANHLAB 11:08
PROVIDERS: PCP Nurse Practitioner Family; Visit Provider Internal Medicine Hematology & Oncology
DX: C50.512 Malignant neoplasm of lower-outer quadrant of left female breast (principal); E61.1 Iron deficiency; R53.83 Other fatigue; Z17.0 Estrogen receptor positive status [ER+]
CPT/HCPCS: 36415; 80053; 82728; 83540; 83550; 84439; 84443; 85025; 86300